=== PATIENT | female | born 1955 | race Caucasian/White ===

== ENCOUNTER 2020-02-11 10:35 | Outpatient (CLI) | payer OTHER, SELFPAY ==
--- NOTE | ~2020-02-11 | MM_ITS ---
EXAMINATION: MM screening minh BI w madan HISTORY: Screening TECHNIQUE: Craniocaudal and mediolateral oblique 3-D tomosynthesis images were obtained and synthetic 2-D images were generated. CAD analysis was submitted and interpreted. COMPARISON: Comparison to multiple prior studies sequentially, with oldest reviewed study dated 08/20. BREAST PARENCHYMAL COMPOSITION: The breasts are heterogeneously dense, which may obscure small masses . FINDINGS: There is no evidence of suspicious mass, calcification, or architectural distortion to sugg est malignancy in either breast. There has been no suspicious interval change. IMPRESSION: 1. No mammographic evidence of malignancy. 2. Recommend routine screening mammography in one year. BI-RADS Category 1: Negative Reviewed, dictated and finalized at location A.
--- NOTE | ~2020-02-11 | DEXA_ITS ---
Bone Density Report Name: Aracelis Gao Age: 64 Sex: Female Ethnicity: White Date of : 1955 Indication: osteopenia; monitoring treatment; height loss; prior fracture; postmenopausal Referring Provider: Jorge Xie Study: Bone densitometry was performed. Exam Date: February 11, 2020 Accession number: [id number] Bone Density: Region BMD T-score Z-score Classification AP Spine (L1, L2) 0.942 -0.3 1.2 Normal Femoral Neck (Left) 0.626 -2.0 -0.6 Osteopenia Total Hip (Left) 0.854 -0.7 0.4 Normal Total Hip Bilateral Avg 0.796 -1.2 -0.1 Osteopenia Femoral Neck (Right) 0.591 -2.3 -0.9 Osteopenia Total Hip (Right) 0.737 -1.7 -0.6 Osteopenia World Health Organization criteria for BMD impression classify patients as: Normal (T-score at or above -1.0), Osteopenia (T-score between -1.0 and -2.5), or Osteoporosis (T-score at or below -2.5). 10-year Fracture Risk: FRAX not reported because: Treated for osteoporosis Previous Exams: Region Exam Age BMD T-score BMD Change BMD Change Date g/cm2 vs Baseline vs Previous AP Spine(L1, L2) 02/11/2020 64 0.942 -0.3 -0.098(-9.4%)# 0.002(0.2%) 01/11/2018 62 0.941 -0.3 -0.100(-9.6%)# 0.040(4.5%)# 11/11/2015 60 0.900 -0.7 -0.140(-13.4%) -0.166(-15.6%) 08/03/2010 55 1.067 0.8 0.026(2.5%)* 0.026(2.5%)* 03/28/2007 52 1.040 0.6 Total Hip(Left) 02/11/2020 64 0.854 -0.7 -0.020(-2.2%)# -0.019(-2.2%) 01/11/2018 62 0.873 -0.6 -0.001(-0.1%)# 0.030(3.6%)# 11/11/2015 60 0.843 -0.8 -0.031(-3.5%)# 0.019(2.3%)# 08/03/2010 55 0.824 -1.0 -0.050(-5.7%)* -0.050(-5.7%)* 03/28/2007 52 0.874 -0.6 Total Hip(Right) 02/11/2020 64 0.737 -1.7 -0.055(-6.9%)# -0.061(-7.6%)* 01/11/2018 62 0.798 -1.2 0.006(0.8%)# 0.044(5.8%)# 11/11/2015 60 0.754 -1.5 -0.038(-4.8%)# -0.007(-0.9%)# 08/03/2010 55 0.761 -1.5 -0.031(-3.9%)* -0.031(-3.9%)* 03/28/2007 52 0.791 -1.2 *Denotes significance at 95% confidence level, LSC for AP Spine = 0.022 g/cm2, LSC for Total Hip = 0.027 g/cm2 Clinical Information Provided by Patient: Has had a low trauma fracture Is being treated for osteoporosis Has used the following medications: Fosamax (i.e. alendronate), Calcium Patient maximum height was 64.5 Menopause Age: 50 Drinks caffeinated beverages Onset of menses at age 14 Number of children 3 Impression: The patient has low bone mass, based on the Right Fe
== END 2020-02-11 10:36 | disposition home or self-care (01) ==
PROVIDERS: PCP Family Medicine; Visit Provider Physician Assistant
DX: Z12.31 Encounter for screening mammogram for malignant neoplasm of breast (principal); M85.80 Other specified disorders of bone density and structure, unspecified site; M81.0 Age-related osteoporosis without current pathological fracture; Z78.0 Asymptomatic menopausal state
CPT/HCPCS: 77063; 77067; 77080

== ENCOUNTER 2020-05-07 11:48 | Outpatient (CLI) | payer OTHER, SELFPAY ==
--- NOTE | 2020-05-07 12:56 | ECG_ITS ---
Measurements Intervals [place] Rate: 68 P: 79 DC: 151 QRS: 33 QRSD: 89 T: 50 QT: 395 QTc: 423 Interpretive Statements SINUS RHYTHM INCOMPLETE RIGHT BUNDLE BRANCH BLOCK DELAYED PRECORDIAL R/S TRANSITION BASELINE ARTIFACT- I, III, AVL, AVF BORDERLINE ECG Electronically Signed On 05-07-2020 13:28:09 DESIGN ENGINEER by Caio Nieves D.O.
[2020-05-07 13:22] LABS: Basophils Percent Auto 0.5 % (0.2-1.2); Eosinophils Absolute Auto 0.1 K/mm3 (0-0.3); Hematocrit 40.5 % (37.0-47.0); Hemoglobin 13.3 g/dL (12.0-15.0); Immature Granulocyte Absolute 0.02 K/mm3 (0.00-0.031); Immature Granulocyte Percent A 0.3 % (0-0.5); Lymphocytes Percent Auto 32.1 % (18.3-44.2); Mean Corpuscular HGB Conc 32.8 g/dl (32-36); Mean Corpuscular Hemoglobin 29.2 pg (26-34); Mean Corpuscular Volume 88.8 fl (80-100); Mean Platelet Volume 10.2 fl (7.4-10.4); Monocytes Absolute Auto 0.4 K/mm3 (0.1-0.6); Monocytes Percent Auto 7.3 % (2.6-8.5); Neutrophils Absolute Auto 3.4 K/mm3 (1.3-6.7); Neutrophils Percent Auto 57.8 % (45.5-73.1); Platelet Count Result 200 k/mm3 (150-375); Red Blood Count 4.56 M/mm3 (4.2-5.4); Red Cell Distribution Width 13.5 % (11.5-14.5); White Blood Count 5.9 K/mm3 (4.5-10.0)
[2020-05-07 13:31] LABS: Alanine Aminotransferase 19 U/L (4-35); Albumin Level 3.9 g/dL (3.5-5.1); Alkaline Phosphatase 64 U/L (38-126); Anion Gap 3 mmol/L (8-16); Aspartate Amino Transferase 16 U/L (14-36); Bilirubin,Total 0.4 mg/dL (0.2-1.3); Blood Urea Nitrogen 14 mg/dL (7-17); Calcium 8.8 mg/dL (8.4-10.2); Carbon Dioxide 36 mmol/L (22-30); Chloride 101 mmol/L (98-107); Estimated Glomerular Filt Rate > 60; Glucose 103 mg/dL (65-105); Potassium 3.6 mmol/L (3.4-5.0); Sodium 140 mmol/L (137-145)
[2020-05-07 13:33] LABS: INR 0.9; Prothrombin Time 13.1 Seconds (11.1-14.7)
== END 2020-05-07 11:49 | disposition home or self-care (01) ==
PROVIDERS: PCP Family Medicine; Visit Provider Urology
DX: N81.4 Uterovaginal prolapse, unspecified (principal); Z01.818 Encounter for other preprocedural examination; I45.10 Unspecified right bundle-branch block
CPT/HCPCS: 36415; 80053; 85025; 85610; 85730; 86850; 86900; 86901; 87086; 93005

== ENCOUNTER 2020-05-14 00:21 | Outpatient (CLI) | payer OTHER, SELFPAY ==
[2020-05-14 18:46] LABS: SARS-CoV-2 RNA PCR Negative
== END 2020-05-14 00:22 | disposition home or self-care (01) ==
LOC: ANHCOVIDDT 00:22
PROVIDERS: PCP Family Medicine; Visit Provider Urology
DX: Z01.812 Encounter for preprocedural laboratory examination (principal); Z20.822 Contact with and (suspected) exposure to COVID-19
CPT/HCPCS: C9803; U0003; U0005

== ENCOUNTER 2020-05-17 02:20 | Day surgery (SDC) | payer OTHER, SELFPAY ==
[2020-05-07 12:16] VITALS: BP 138/69; PULSE 67; RESP 16; TEMP 37.2; O2SAT 97; BMI 28.1
--- NOTE | 2020-05-15 08:36 | PM.IMHP ---
H&P: HPI History of Present Illness Date/Time: 05/15/20 08:36 Chief Complaint: POP Narrative: Aracelis Gao is a 65 year old female with POP without CHERYL Review of Systems Review of Systems: All systems reviewed & are unremarkable except as noted in HPI and below PMFSH Family History Family History Father Diabetes mellitus Family history of cardiovascular disease Acute myocardial infarction Mother Diabetes mellitus Grandparent Family history of cardiovascular disease Family history of congestive heart failure Sibling Family history of malignant neoplasm of breast, Onset Age: 48 Social History Social History Smoking packs per day: 1 Smoking cigarettes per day: 20.0 Years smoked: 6 Smoking pack-years: 6.00 Smoking status: Former smoker Smoking end date: 10/28/78 Alcohol intake: current Drinks per week: 7 Substance use: never Spiritual care concerns: No Meds Home Medications and Allergies Home Medications Medication Instructions Recorded Confirmed Type alendronate 70 mg tablet 70 mg PO WEEKLY #13 tablet 12/19/19 05/07/20 Rx calcium carbonate [Caltrate 600] 600 mg PO DAILY 05/07/20 05/07/20 History cholecalciferol (vitamin D3) 50 mcg PO DAILY 05/07/20 05/07/20 History [Vitamin D3] Allergies Allergy/AdvReac Type Severity Reaction Status Date / Time Penicillins Allergy Unknown Unknown Verified 05/07/20 12:11 codeine AdvReac Unknown Dizziness Verified 05/07/20 12:11 Exam Const: General: cooperative and healthy appearing HENMT: Head: normal to inspection Resp: Effort & Inspection: normal respiratory effort and able to speak in complete sentences GI: Inspection: normal to inspection : Bimanual exam- vagina & uterus: Uterus displaced (+3) Bimanual Exam- Adnexa, other: vaginal apex descent Skin: General skin exam: normal color Neuro: General: patient oriented x3 Assessment and Plan Assessment and plan (1) Pelvic prolapse: Qualifiers: Prolapse type: unspecified female genital prolapse Qualified Code(s): N81.9 - Female genital prolapse, unspecified Code(s): N81.9 - Female genital prolapse, unspecified Status: Acute Assessment and Plan: Robotic Sacral Colpopexy
[2020-05-17] VITALS (15 sets, daily range): BP systolic 108–132; BP diastolic 49–88; PULSE 54–103; RESP 14–60; TEMP 36.1–37.7; O2SAT 95–100
--- NOTE | 2020-05-17 06:38 | WPDANESEPPF ---
Anes - Initial Pre Proc Eval Procedure: Operation Date: 05/17/20 07:30 Proposed Procedures p Robotic Sacrocolpopexy with Urethral Sling - Robert Medeiros MD s Robotic Assisted Laparoscopic Supracervical Hysterectomy, With Bilateral Salpingo-Oophorectomy - Sami Galan MD Date/Time: 05/17/20 06:38 Surgeon: Robert Medeiros MD Pre Op Diagnosis: uterine prolapse, cystocele Patient Data Age: 65 Gender: F Height: 1.61 m Weight: 73.2 kg Last Vital Signs Temp 37.2 C 05/07/20 12:16 Pulse 67 05/07/20 12:16 Resp 16 05/07/20 12:16 BP 138/69 05/07/20 12:16 Pulse Ox 97 05/07/20 12:16 Allergies Allergy/AdvReac Type Severity Reaction Status Date / Time codeine AdvReac Unknown Dizziness Verified 05/17/20 06:12 Penicillins AdvReac Unknown UNKNOWN Verified 05/17/20 06:12 FROM CHILDHOOD Home Medications Medication Instructions Recorded Confirmed Type alendronate 70 mg tablet 70 mg PO WEEKLY #13 tablet 12/19/19 05/17/20 Rx calcium carbonate [Caltrate 600] 600 mg PO DAILY 05/07/20 05/17/20 History cholecalciferol (vitamin D3) 50 mcg PO DAILY 05/07/20 05/17/20 History [Vitamin D3] ECG: Date of Service: 05/07/20 Procedure(s): CA 12 lead EKG Accession Number(s): [id number] cc: ~ Measurements Intervals [place] Rate: 68 P: 79 NE: 151 QRS: 33 QRSD: 89 T: 50 QT: 395 QTc: 423 Interpretive Statements SINUS RHYTHM INCOMPLETE RIGHT BUNDLE BRANCH BLOCK DELAYED PRECORDIAL R/S TRANSITION BASELINE ARTIFACT- I, III, AVL, AVF BORDERLINE ECG Electronically Signed On 05-07-2020 13:28:09 [employer] SUPERINTENDENT by Caio Nieves D.O. Dictated By: Caio Nieves DO 05/07/20 1331 Patient hx anesthesia problems: none Family hx anesthesia problems: none PMFSH Past Medical History Medical History (Updated 05/17/20 @ 06:40 by Arthur Mcgee MD) Cystocele Osteopenia Uterine prolapse Family History Family History Father Diabetes mellitus Family history of cardiovascular disease Acute myocardial infarction Mother Diabetes mellitus Grandparent Family history of cardiovascular disease Family history of congestive heart failure Sibling Family history of malignant neoplasm of breast, Onset Age: 48 Social History Social History Smoking packs per day: 1 Smoking cigarettes per day: 20.0 Years smoked: 6 Smoking pack-years: 6.00 Smoking status: Former smoker Smoking end date: 04/30/94 Alcohol intake: current Drinks per week: 7 Alcohol use details: 1 GLASS/DAY Substance use: never Living arrangements: alone Spiritual care concerns: No Anes - Eval Final PreProcedure Day of Procedure 05/17/20 06:38 Patient weight: overweight Heart: regular rate and rhythm Lungs: clear to auscultation and normal air movement Airway: Mallampati scale class II Neurological: alert and oriented Last oral intake: >/= 8 hours ASA classification: II Emergent: no Anesthetic plan: proceed Anesthesia type and monitoring: general ETT Informed Consent: The patient's anesthetic plan and its attendant risks and benefits were discussed with the patient/family/POA. Questions were solicited and answers provided to the satisfaction of the patient/family/POA.
[2020-05-17] MEDS: ACETAMINOPHEN 500 MG TABLET 1000 MG PO (07:01)
[2020-05-17] MEDS: LACTATED RINGERS 1,000 ML 30 ML IV CONT ×2 (07:05→10:14)
[2020-05-17] MEDS: KETOROLAC 15 MG/ML VIAL (*BKC) IV PUSH (07:11)
--- NOTE | 2020-05-17 07:20 | WPDHPUPDATE1 ---
History and Physical Update Update Date/Time: 05/17/20 07:20 History and Physical has been reviewed, including an updated exam of the patient. There are NO changes in the patient's condition. Risks, benefits, and alternatives have been discussed and questions answered. Patient agrees to proceed with procedure.
--- NOTE | 2020-05-17 07:25 | WPDHPUPDATE1 ---
History and Physical Update Update Date/Time: 05/17/20 07:25 History and Physical has been reviewed, including an updated exam of the patient. There are NO changes in the patient's condition. Risks, benefits, and alternatives have been discussed and questions answered. Patient agrees to proceed with procedure.
--- NOTE | 2020-05-17 07:25 | PM.IMHP ---
H&P: HPI History of Present Illness Date/Time: 05/17/20 07:25 Chief Complaint: Vaginal pressure and fullness. Narrative: Aracelis Gao is a 65 year old female presents with a longstanding history of of vaginal pressure fullness. This has been worsening over the last 4-6 months to the point where she has decided to proceed with treatment. She also seen Dr. Medeiros. He will be proceeding with her cystocele. Review of Systems Review of Systems: All systems reviewed & are unremarkable except as noted in HPI and below PMFSH Past Medical History Medical History Cystocele Osteopenia Uterine prolapse Family History Family History Father Diabetes mellitus Family history of cardiovascular disease Acute myocardial infarction Mother Diabetes mellitus Grandparent Family history of cardiovascular disease Family history of congestive heart failure Sibling Family history of malignant neoplasm of breast, Onset Age: 48 Social History Social History Smoking packs per day: 1 Smoking cigarettes per day: 20.0 Years smoked: 6 Smoking pack-years: 6.00 Smoking status: Former smoker Smoking end date: 04/30/94 Alcohol intake: current Drinks per week: 7 Alcohol use details: 1 GLASS/DAY Substance use: never Living arrangements: alone Spiritual care concerns: No Meds Home Medications and Allergies Home Medications Medication Instructions Recorded Confirmed Type alendronate 70 mg tablet 70 mg PO WEEKLY #13 tablet 12/19/19 05/17/20 Rx calcium carbonate [Caltrate 600] 600 mg PO DAILY 05/07/20 05/17/20 History cholecalciferol (vitamin D3) 50 mcg PO DAILY 05/07/20 05/17/20 History [Vitamin D3] Allergies Allergy/AdvReac Type Severity Reaction Status Date / Time codeine AdvReac Unknown Dizziness Verified 05/17/20 06:12 Penicillins AdvReac Unknown UNKNOWN Verified 05/17/20 06:12 FROM CHILDHOOD Exam Const: General: cooperative Resp: Effort & Inspection: normal respiratory effort Cardio: Rate: regular rate Rhythm: regular rhythm GI: Inspection: normal to inspection : External Female Exam: normal external appearance Speculum Exam - Vagina: normal appearance of the vagina Speculum Exam - Cervix: normal appearance of the cervix Bimanual exam- vagina & uterus: Uterus displaced (Prolapse noted as well as cystocele) Bimanual Exam- Adnexa, other: normal adnexae Assessment and Plan Assessment and plan (1) Uterine prolapse: Code(s): N81.4 - Uterovaginal prolapse, unspecified Status: Acute (2) Cystocele: Status: Acute Additional Plan Robotic assisted supracervical hysterectomy with bilateral salpingo oophorectomy.
[2020-05-17] MEDS: ceFAZolin 2 GM/D5W 50 ML 2 GM/50 ML BAG IVPB (07:38)
[2020-05-17] MEDS: metroNIDAZOLE 500 MG/ISO 100ML 500 MG/100 ML BAG 100 MG IVPB ×2 (08:00→16:10)
--- NOTE | 2020-05-17 08:36 | PM.OP ---
Procedure Note - Brief Procedure Note - Brief Date of procedure: 05/17/20 Pre-op diagnosis: uterine prolapse, cystocele Post-op diagnosis: same Procedure performed: Robotic assisted supracervical hysterectomy with bilateral salpingo oophorectomy Description of procedure: Patient was prepped and draped in usual manner for this procedure. Dr. Medeiros placed all the trocars and instruments in the patient's abdomen. At this point surgeon moved to the console and the pelvis was inspected without abnormality. Bilaterally the infundibulopelvic ligaments were cauterized and cut to free up the tubes and ovaries round ligaments were then cauterized and cut. Bladder flap and posterior leaf of the broad ligament were incised. Uterine vessels were skeletonized cauterized and cut. The uterus tubes and ovaries were then from the cervix without difficulty. At this time there were placed in Endo-Catch bag for removal later in the case. There was no bleeding no other concerns and at this point entered the room to proceed with his portion of the procedure. Anesthesia: GETA Surgeon: Sami Galan MD Estimated blood loss (mL): 10 Drains: No Packing: No Pathology: yes Complications: No immediate complications Condition: stable Disposition: PACU Findings: Uterine prolapse was noted. Uterus tubes and ovaries without visible abnormality on laparoscopic inspection.
[2020-05-17] MEDS: LIDO 1%/EPINEPHRINE 1:100,000 50 ML VIAL INFILTRATE (08:41)
--- NOTE | 2020-05-17 09:58 | SUR.OPER ---
Ebl=10ml
--- NOTE | 2020-05-17 10:02 | PM.PROC ---
Procedure Note - Detailed Date of procedure: 05/17/20 Pre-op diagnosis: uterine prolapse, cystocele Post-op diagnosis: same Procedure performed: Robotic assisted laparoscopic sacral colpopexy Cystoscopy Description of procedure: Anesthesia: General She understood the risks of bleeding, infection, damage to surrounding organs, bowel injury, bowel obstruction, recurrence of prolapse, persistent or recurrent stress incontinence, mesh related complications including exposure and extrusion, diskitis, postoperative voiding dysfunction including incontinence and retention, hip and leg pain, dyspareunia, and she agrees to proceed. She was correctly identified and informed consent was obtained. She was brought to the operating room. She was given general anesthesia. She was placed in the dorsal lithotomy position. All pressure points were padded. She was given appropriate perioperative antibiotics. Time-out performed. I anesthetized the skin 3 fingerbreadths cephalad to the umbilicus. I incised the skin. I dissected down to locate the fascia. I grasped the fascia with Claudia clamps. I entered the fascia sharply. I placed Vicryl sutures for later fascial closure. I placed a midline trocar. Under direct vision 2 additional trocars were placed on the right and left upper quadrant. She was placed in steep Trendelenburg and the robot was docked. Her college or university business manager performed the portion of the procedure and left the specimen and a sac which was extracted. I then sat at the console. With the Sizer in the vagina I created a plane on the anterior and posterior vaginal wall. This was done for several cm taking great care not to injure the vagina, bladder, or rectum. I introduced the mesh into the abdomen. I sewed the anterior leaflet of mesh on the anterior vaginal wall and posterior leaf of the mesh on the posterior vaginal wall with several [place] sutures taking great care not to go through and through. I then reflected the colon laterally. I opened up the posterior peritoneum over the sacral promontory. I carried this into the cul-de-sac. I kept the ureters lateral. I freed up the edges. I located the anterior longitudinal ligament of the sacrum. I tensioned the mesh appropriately. I did a vaginal exam to ensure prolapse reduction without undue tension. I then sewed the proximal leaflet of mesh onto the ligament with 3 sutures of 2 0 [place]. Next the mass was meticulously retroperitonealized with a running 2 0 Monocryl suture. I allowed the colon to go back into its normal anatomic location. There is no signs of any impingement or stricturing. The abdomen was exited. Fascia was closed. Skin was closed with Monocryl and glue. She was repositioned. I then performed cystoscopy. The bladder is examined. There was no tumors, stones, foreign bodies, surgical artifact. Both ureters were seen to excrete clear yellow urine. There is no surgical artifact in the urethra. Catheter was then replaced. She was awakened and transferred to the PACU in stable condition. Anesthesia: GLMA Surgeon: Robert Medeiros MD Drains: Yes (Recinos catheter) Packing: Yes Complications: No immediate complications Condition: stable Disposition: PACU
[2020-05-17] MEDS: fentaNYL CITRATE INJ (*CRX) 100 MCG/2 ML VIAL 25 MCG IV PUSH ×4 (10:28→10:58)
--- NOTE | 2020-05-17 10:29 | SUR.PHASEI ---
PT MOANING AND GRIMACING, C/O PAIN. FENTANYL GIVEN PRN
[2020-05-17] MEDS: ONDANSETRON INJ 4 MG/2 ML VIAL IV PUSH ×2 (11:12→16:33)
--- NOTE | 2020-05-17 11:16 | SUR.PHASEI ---
PT C/O NAUSEA. ZOFRAN GIVEN IV. SAO2 DROPPED TO 88%. O2 2L NC APPLIED
--- NOTE | 2020-05-17 11:21 | SUR.PHASEI ---
PT SLEEPING. RESP EVEN UNLABORED.
--- NOTE | 2020-05-17 11:30 | SUR.PHASEI ---
1120; PT STATES NAUSEA BETTER.
--- NOTE | 2020-05-17 11:31 | PC.NURSE ---
This patient, Aracelis Gao, was received from PACU on 05/17/20 at 1131. Patient oriented to unit policies and routines
[2020-05-17] MEDS: KCL 20 MEQ/D5/0.45% SOD CHL 1,000 ML 100 ML IV CONT ×2 (11:50→20:31)
[2020-05-17] MEDS: KETOROLAC 30 MG/ML VIAL (*BKC) 15 MG IV PUSH ×2 (12:47→23:49)
[2020-05-17] MEDS: MORPHINE SULFATE (*CRX) 2 MG/ML INJ IV PUSH (12:48)
[2020-05-17] MEDS: diphenhydrAMINE HCl INJ 50 MG/ML VIAL 25 MG IV PUSH (13:07)
[2020-05-17] MEDS: ACETAMINOPHEN 325 MG TABLET 650 MG PO (17:43)
[2020-05-18] VITALS: BP 100/53; PULSE 75; RESP 16; TEMP 36.8; O2SAT 94
[2020-05-18] MEDS: metroNIDAZOLE 500 MG/ISO 100ML 500 MG/100 ML BAG 100 MG IVPB (00:09)
[2020-05-18 04:00] VITALS: BP 100/50; PULSE 83; RESP 16; TEMP 36.7; O2SAT 95
[2020-05-18] MEDS: HYDROcodone/acetaminophen (*CRX) 5-325 MG TABLET 1 TAB PO ×2 (05:18→11:26)
--- NOTE | 2020-05-18 07:25 | WPDANESPN ---
Anes - Prog Note Post-Op Date/Time: 05/18/20 07:25 Cardiovascular status: normal Respiratory status: normal Airway patency: baseline Mental status: baseline Post-Op hydration status: normal Vital Signs: Last Vital Signs Temp 36.7 C 05/18/20 04:00 Pulse 83 05/18/20 04:00 Resp 16 05/18/20 04:00 BP 100/50 L 05/18/20 04:00 Pulse Ox 95 05/18/20 04:00 Pain Score (VAS): 4 I/O: Intake & Output 05/17/20 05/17/20 05/18/20 15:59 23:59 07:59 Intake Total 450 1250 450 Output Total 45 300 1450 Balance 405 950 -1000 Post-procedural complaints: nausea Patient Feedback: Patient satisfied with anesthetic care.
[2020-05-18] MEDS: LACTATED RINGERS 1,000 ML 125 ML IV CONT (07:51)
[2020-05-18] MEDS: DOCUSATE SODIUM 100 MG CAPSULE PO (07:52)
[2020-05-18] MEDS: KETOROLAC 30 MG/ML VIAL (*BKC) 15 MG IV PUSH (07:52)
[2020-05-18] MEDS: ENOXAPARIN 30 MG/0.3 ML SYRINGE SUB-Q (07:53)
[2020-05-18] MEDS: ONDANSETRON INJ 4 MG/2 ML VIAL IV PUSH (08:24)
[2020-05-18 08:30] VITALS: BP 106/46; PULSE 60; RESP 18; TEMP 37.2; O2SAT 100
--- NOTE | 2020-05-18 09:03 | WPDUROPN2 ---
Progress Note: A&P Assessment and Plan (1) Pelvic prolapse: Qualifiers: Prolapse type: unspecified female genital prolapse Qualified Code(s): N81.9 - Female genital prolapse, unspecified Code(s): N81.9 - Female genital prolapse, unspecified Status: Acute Assessment and Plan: Push fluids, if able to urinate and hypotension improves, ok to discharge home later today. If unable to urinate, will need to replace the ramos and come in on for a catheter removal. (2) Uterine prolapse: Code(s): N81.4 - Uterovaginal prolapse, unspecified Status: Acute Subjective Subjective Date/Time Seen: 05/18/20 09:03 POD #1 Robotic Assisted Sacral Colpopexy and Robotic Assisted Hysterectomy with bilateral salpingo-oophorectomy. Patient doing well, she is slightly dizzy this morning but also hypotensive. She is nauseated and constipated, but tolerating diet well with Zofran. Ramos removed, no urination yet. Review of Systems Cardiovascular: Cardiovascular: Denies chest pain Respiratory: Respiratory: Reports no additional respiratory complaints Gastrointestinal: Gastrointestinal: Reports abdominal pain, Reports nausea and Denies vomiting Genitourinary: Genitourinary: Denies flank pain Exam Resp: Effort & Inspection: normal respiratory effort Cardio: Rate: regular rate GI: GI Palp: Yes Soft to palpation and No Tenderness to palpation present (GI) : General: Yes no CVA tenderness Extrem: General: no edema Objective Data Vital Signs Vital Signs: Vital Signs - 24 hr 05/17/20 10:14 05/17/20 10:30 05/17/20 10:45 Temperature 96.9 F L Pulse Rate 74 55 L 63 Respiratory Rate 14 14 14 Blood Pressure 110/63 114/68 114/59 L Pulse Oximetry 99 100 97 05/17/20 11:00 05/17/20 11:15 05/17/20 11:40 Temperature 98.7 F Pulse Rate 55 L 54 L 79 Respiratory Rate 16 14 16 Blood Pressure 128/66 111/54 L 117/60 Pulse Oximetry 99 99 100 05/17/20 11:45 05/17/20 12:00 05/17/20 12:15 Temperature Pulse Rate 79 64 60 Respiratory Rate 15 15 60 H Blood Pressure 108/70 118/49 L 117/54 L Pulse Oximetry 99 99 99 05/17/20 12:30 05/17/20 13:00 05/17/20 14:00 Temperature Pulse Rate 103 H 60 74 Respiratory Rate 22 H 16 16 Blood Pressure 118/88 114/49 L 132/54 L Pulse Oximetry 98 99 98 05/17/20 15:00 05/17/20 20:00 05/18/20 00:00 Temperature 98.1 F 97.6 F 98.2 F Pulse Rate 72 81 75 Respiratory Rate 18 16 16 Blood Pressure 121/55 L 108/62 100/53 L Pulse Oximetry 100 95 94 05/18/20 04:00 Temperature 98.1 F Pulse Rate 83 Respiratory Rate 16 Blood Pressure 100/50 L Pulse Oximetry 95 Intake/Output Intake/Output: Intake & Output 05/15/20 05/16/20 05/17/20 05/18/20 23:59 23:59 23:59 23:59 Intake Total 1700 450 Output Total 345 1450 Balance 1355 -1000 Meds/Results Medications: Active Medications Generic Name Dose Route Start Last Admin Trade Name Freq PRN Reason Stop Dose Admin Acetaminophen 650 mg 05/17/20 11:25 05/17/20 17:43 Acetaminophen 325 Mg Tablet PO 650 mg Q4H PRN Administration Mild Pain (1-3) or Fever Hydrocodone Bitart/Acetaminophen 1 tab 05/17/20 11:25 05/18/20 05:18 Hydrocodone/Acetaminophen (*Crx) 5-325 Mg Tablet PO 1 tab Q4H PRN Administration Pain Rated 4-5 Cephalexin HCl 500 mg 05/18/20 13:00 Cephalexin 500 Mg Capsule PO QID LONNIE Diphenhydramine HCl 25 mg 05/17/20 11:25 05/17/20 13:07 Diphenhydramine Hcl Inj 50 Mg/Ml Vial IV PUSH 25 mg Q6H PRN Administration Itching Docusate Sodium 100 mg 05/17/20 11:25 05/18/20 07:52 Docusate Sodium 100 Mg Capsule PO 100 mg DAILY [facility] Administration Enoxaparin Sodium 30 mg 05/18/20 09:00 05/18/20 07:53 Enoxaparin 30 Mg/0.3 Ml Syringe SUB-Q 30 mg DAILY LONNIE Administration Fentanyl Citrate 25 mcg 05/17/20 06:37 05/17/20 10:58 Fentanyl Citrate Inj (*Crx) 100 Mcg/2 Ml Vial IV PUSH 25 mcg Q2M PRN Admin
[2020-05-18 09:25] VITALS: BP 106/46; PULSE 60; RESP 18; TEMP 37.2
[2020-05-18] MEDS: CEPHALEXIN 500 MG CAPSULE PO (11:25)
[2020-05-18] MEDS: ACETAMINOPHEN 325 MG TABLET 650 MG PO (11:26)
[2020-05-18] MEDS: ONDANSETRON HCL ODT 4 MG TABLET PO (12:06)
--- NOTE | 2020-05-18 12:59 | PC.NURSE ---
1045- Pt. awake. States she hasn't slept at all . Informed pt. that she was asleep each time i looked in on her. Pt. seems to be very quiet but somewhat anxious regarding discharge. Instructed pt. that she would need to urinate and ambulate in hallway before discharge. Pt. verbalized understanding. Pt ate small amount of yogart along with cup of coffee. No emesis noted. Continues to complain of nausea. Explained that it could be due to anesthesia and pain medication she has received. Pt. pleasant and verbalized understanding. 1115- Pt. ambulated to bathroom with slow steady gait. Voided 400cc. of clear abdirahman urine. No spotting noted on peripad. Encouraged pt. to ambulate in room or hallway to help relieve gas. Instructed that gas is an issue with this type of surgery and the more she walks or stands will help move the air in intestinal tract. Pt. voiced understanding. 1145- Pt. ambulated hallway with slow steady gait. Steady or feet. Became nauseous and assisted to wheelchair. No emesis at this time. 1215- Discharge instructions given to pt. and [id number]. Instructed when she could have another [place] for pain. Informed pt. and family that time will help with nausea. Prescriptions were e-filed per Dr. Medeiros office. Pt. pleasant and cooperative. No questions or concerns voiced. States she will be happy to get home in own bed to sleep . Family will be available to stay with pt. and assist where needed.
== END 2020-05-18 12:25 | disposition home or self-care (01) ==
LOC: ANHSURGERY 07:39 → ANHOB2 10:57
PROVIDERS: Obstetrics & Gynecology; PCP Family Medicine; Visit Provider Urology
PROC: (CPT 57425; principal; 2020-05-17 07:30)
PROC: (CPT 58542; 2020-05-17 07:30)
DX: N81.4 Uterovaginal prolapse, unspecified (principal); Z87.891 Personal history of nicotine dependence
CPT/HCPCS: 57425; 58542; S2900; 36415; 80053; 85025; 85610; 85730; 86850; 86900; 86901; 87086; 88307; 93005; 99199; A9270; C1781; C9290; C9803; J0330; J0690; J1100; J1200; J1650; J1885; J2250; J2270; J2370; J2405; J2704; J2710; J3010; J3480; J7030; J7120; U0003; U0005

== ENCOUNTER 2021-03-11 10:29 | Outpatient (CLI) | payer OTHER, SELFPAY ==
--- NOTE | ~2021-03-11 | MM_ITS ---
EXAMINATION: MM screening minh BI w madan HISTORY: Screening mammogram TECHNIQUE: Craniocaudal and mediolateral oblique 3-D tomosynthesis images were obtained and synthetic 2-D images were generated. CAD analysis was submitted and interpreted. COMPARISON: 02/11/2020, 01/18/2019, 01/11/2018 bilateral screening mammogram examinations BREAST PARENCHYMAL COMPOSITION: The breasts are heterogeneously dense, which may obscure small masses . FINDINGS: There is no evidence of suspicious mass, calcification, or architectural distortion to sugg est malignancy in either breast. There has been no suspicious interval change. IMPRESSION: 1. No mammographic evidence of malignancy. 2. Recommend routine screening mammography in one year. BI-RADS Category 1: Negative Reviewed, dictated and finalized at location A. GRADER OPERATOR
== END 2021-03-11 10:30 | disposition home or self-care (01) ==
PROVIDERS: PCP Family Medicine; Visit Provider Family Medicine
DX: Z12.31 Encounter for screening mammogram for malignant neoplasm of breast (principal)
CPT/HCPCS: 77063; 77067

== ENCOUNTER 2022-02-24 01:04 | Day surgery (SDC) | payer OTHER, SELFPAY ==
[2022-02-15 14:09] VITALS: BMI 26.6
[2022-02-24 06:32] VITALS: BP 124/64; PULSE 74; RESP 18; TEMP 36.3; O2SAT 97; BMI 26.6
[2022-02-24] MEDS: LACTATED RINGERS 1,000 ML 150 ML IV CONT (06:40)
--- NOTE | 2022-02-24 07:19 | WPDANESEPPF ---
Anes - Initial Pre Proc Eval Procedure: Operation Date: 02/24/22 07:30 Proposed Procedures p Screening Colonoscopy - Chau Becerra MD Date/Time: 02/24/22 07:19 Surgeon: Chau Becerra MD Pre Op Diagnosis: neoplasm screening Patient Data Age: 66 Gender: F Height: 1.63 m Weight: 70.5 kg Last Vital Signs Temp 97.4 F L 02/24/22 06:32 Pulse 74 02/24/22 06:32 Resp 18 02/24/22 06:32 BP 124/64 02/24/22 06:32 Pulse Ox 97 02/24/22 06:32 O2 Del Method Room Air 02/24/22 06:32 Allergies Allergy/AdvReac Type Severity Reaction Status Date / Time codeine AdvReac Unknown Dizziness Verified 02/24/22 06:31 Penicillins AdvReac Unknown UNKNOWN Verified 02/24/22 06:31 FROM CHILDHOOD Home Medications Medication Instructions Recorded Confirmed Type calcium carbonate 600 mg calcium 600 mg PO DAILY 05/07/20 02/15/22 History (1,500 mg) tablet cholecalciferol (vitamin D3) 50 50 mcg PO DAILY 05/07/20 02/15/22 History mcg (2,000 unit) capsule (Vitamin D3) loratadine 10 mg tablet 10 mg PO DAILY 02/01/22 02/15/22 History multivitamin 1 tablet PO DAILY 02/01/22 02/15/22 History alendronate 70 mg tablet 70 mg PO WEEKLY 02/15/22 02/15/22 History sodium,potassium,mag sulfates 17.5 See Rx Instructions PO .COMPLEX 02/15/22 02/24/22 Rx gram-3.13 gram-1.6 gram oral soln #354 mL (Suprep Bowel Prep Kit) Patient hx anesthesia problems: none Family hx anesthesia problems: none Results Review: All pre-operative results and documents have been reviewed as part of the pre-operative evaluation. COUNT INCLUDES THE [facility] Past Medical History Medical History Actinic keratoses Acute seasonal allergic rhinitis Cystocele Overactive bladder Pelvic prolapse March Surgery Dr Galan and Waldemar Seborrheic keratoses, inflamed Uterine prolapse Surgical History Surgical History History of discectomy History of hysterectomy 05/17/20 RA supracx hyst w/ BSO--uterine prolapse w/bladder suspension Family History Family History Father Diabetes mellitus Family history of cardiovascular disease Acute myocardial infarction Mother Diabetes mellitus Hypertension Grandparent Family history of cardiovascular disease Family history of congestive heart failure Diabetes mellitus paternal grandmother paternal grandfather Hypertension paternal grandfather Sibling Family history of malignant neoplasm of breast, Onset Age: 48 Social History Social History (Updated 02/01/22 @ 13:04 by Ankit Smith MA) Smoking packs per day: 1 Smoking cigarettes per day: 20.0 Years smoked: 6 Smoking pack-years: 6.00 Smoking status: Never smoker Smoking end date: 04/30/94 Alcohol intake: current Drinks per week: 2 Alcohol use details: 1 GLASS/DAY Substance use: never Substance use type: does not use Living arrangements: alone Additional living arrangements comments: 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 Gender identity (if verbalized by the patient): Female Sexual Orientation (if Verbalized by the Patient): Straight or Heterosexual Spiritual care concerns: No Anes - Eval Final PreProcedure Day of Procedure 02/24/22 07:19 Patient weight: overweight Heart: regular rate and rhythm Lungs: clear to auscultation Airway: Mallampati scale class II Neurological: alert and oriented Last oral intake: >/= 8 hours ASA classification: II Emergent: no Anesthetic plan: proceed Anesthesia type and monitoring: general GIVS and standard monitoring Results Review: All pre-operative results and documents have been reviewed as part of the pre-operative evaluation. Informed Consent: The patient's anesthetic plan and its attendant risks and benefits were di
--- NOTE | 2022-02-24 07:19 | PM.HPGS ---
History of Present Illness History of Present Illness Consent: Risks, benefits, and alternatives have been discussed and questions answered. Patient agrees to proceed with procedure. Chief complaint: neoplasm screening Narrative: Aracelis Gao is a 66 year old female Presents for screening colonoscopy. Patient's current weight appetite and bowel movements are normal. Patient denies abdominal pain. She has had no bleeding. Family history is noncontributory. Patient's last colonoscopy 10 years ago was unremarkable. Review of Systems Review of Systems: Review of systems noncontributory. [facility] Past Medical History Medical History Actinic keratoses Acute seasonal allergic rhinitis Cystocele Overactive bladder Pelvic prolapse March Surgery Dr Galan and Waldemar Seborrheic keratoses, inflamed Uterine prolapse Surgical History Surgical History History of discectomy History of hysterectomy 05/17/20 RA supracx hyst w/ BSO--uterine prolapse w/bladder suspension Family History Family History Father Diabetes mellitus Family history of cardiovascular disease Acute myocardial infarction Mother Diabetes mellitus Hypertension Grandparent Family history of cardiovascular disease Family history of congestive heart failure Diabetes mellitus paternal grandmother paternal grandfather Hypertension paternal grandfather Sibling Family history of malignant neoplasm of breast, Onset Age: 48 Social History Social History (Updated 02/01/22 @ 13:04 by Ankit Smith MA) Smoking packs per day: 1 Smoking cigarettes per day: 20.0 Years smoked: 6 Smoking pack-years: 6.00 Smoking status: Never smoker Smoking end date: 04/30/94 Alcohol intake: current Drinks per week: 2 Alcohol use details: 1 GLASS/DAY Substance use: never Substance use type: does not use Living arrangements: alone Additional living arrangements comments: 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 Gender identity (if verbalized by the patient): Female Sexual Orientation (if Verbalized by the Patient): Straight or Heterosexual Spiritual care concerns: No Meds Home Medications and Allergies Home Medications Medication Instructions Recorded Confirmed Type calcium carbonate 600 mg calcium 600 mg PO DAILY 05/07/20 02/15/22 History (1,500 mg) tablet cholecalciferol (vitamin D3) 50 50 mcg PO DAILY 05/07/20 02/15/22 History mcg (2,000 unit) capsule (Vitamin D3) loratadine 10 mg tablet 10 mg PO DAILY 02/01/22 02/15/22 History multivitamin 1 tablet PO DAILY 02/01/22 02/15/22 History alendronate 70 mg tablet 70 mg PO WEEKLY 02/15/22 02/15/22 History sodium,potassium,mag sulfates 17.5 See Rx Instructions PO .COMPLEX 02/15/22 02/24/22 Rx gram-3.13 gram-1.6 gram oral soln #354 mL (Suprep Bowel Prep Kit) Allergies Allergy/AdvReac Type Severity Reaction Status Date / Time codeine AdvReac Unknown Dizziness Verified 02/24/22 06:31 Penicillins AdvReac Unknown UNKNOWN Verified 02/24/22 06:31 FROM CHILDHOOD Vital Signs Vital Signs - 24 hr 02/24/22 06:32 Temperature 97.4 F L Pulse Rate 74 Respiratory Rate 18 Blood Pressure 124/64 Pulse Oximetry 97 Oxygen Delivery Room Air Exam Narrative: Physical exam reveals patient to be alert. Vital signs stable. HEENT exam is unremarkable. Patient is anicteric. Lungs are clear to auscultation and percussion. Heart is without murmur or extra sounds. Abdomen bowel sounds are present soft nontender with no organomegaly. Digital external rectal exam is normal. Assessment and Plan Assessment and plan (1) Encounter for screening colonoscopy: Code(s): Z12.11 - Encounter for screening for malignan
[2022-02-24] MEDS: SIMETHICONE ORAL SUSPENSION 20 MG/0.3 ML 30 ML BOTTLE 0.6 ML IRRIGATION (07:39)
[2022-02-24 07:48] VITALS: BP 110/61; PULSE 75; RESP 19; O2SAT 97
[2022-02-24 07:58] VITALS: BP 129/75; PULSE 71; RESP 20; O2SAT 100
[2022-02-24 08:08] VITALS: BP 124/89; PULSE 68; RESP 19; O2SAT 100
== END 2022-02-24 08:23 | disposition home or self-care (01) ==
PROVIDERS: PCP Family Medicine; Visit Provider Internal Medicine Gastroenterology
PROC: 0DJD8ZZ Inspection of Lower Intestinal Tract, Via Natural or Artificial Opening Endoscopic (ICD-10-PCS; CPT 45378; principal; 2022-02-24 07:30)
DX: Z12.11 Encounter for screening for malignant neoplasm of colon (principal); K64.8 Other hemorrhoids; K57.30 Diverticulosis of large intestine without perforation or abscess without bleeding
CPT/HCPCS: 45378; J2704; J7120

== ENCOUNTER 2022-03-16 09:37 | Outpatient (CLI) | payer MEDICARE, SELFPAY ==
--- NOTE | ~2022-03-16 | DEXA_ITS ---
Bone Density Report Name: GUNNER CESAR Age: 67 Sex: Female Ethnicity: White Date of : 1955 Indication: osteopenia; monitoring treatment; height loss; prior fracture; hysterectomy; postmenopausal Referring Provider: JOAQUIN SPENCE Study: Bone densitometry was performed. Exam Date: March 16, 2022 Accession number: [id number] Bone Density: Region BMD T-score Z-score Classification AP Spine(L1, L2, L4) 1.036 0.0 1.8 Normal Femoral Neck (Left) 0.662 -1.7 -0.2 Osteopenia Total Hip (Left) 0.869 -0.6 0.6 Normal Femoral Neck (Right) 0.597 -2.3 -0.8 Osteopenia Total Hip (Right) 0.781 -1.3 -0.1 Osteopenia Total Hip Mean 0.825 -1.0 0.3 Normal World Health Organization criteria for BMD impression classify patients as: Normal (T-score at or above -1.0), Osteopenia (T-score between -1.0 and -2.5), or Osteoporosis (T-score at or below -2.5). 10-year Fracture Risk: FRAX not reported because: Treated for osteoporosis Previous Exams: Region Exam Age BMD T-score BMD Change BMD Change Date g/cm2 vs Baseline vs Previous Total Hip(Left) 03/16/2022 67 0.869 -0.6 0.026 (3.0%)# 0.014 (1.7%) 02/11/2020 64 0.854 -0.7 0.011 (1.3%)# -0.019 (-2.2%) 01/11/2018 62 0.873 -0.6 0.030 (3.6%)# 0.030 (3.6%)# 11/11/2015 60 0.843 -0.8 Total Hip(Right) 03/16/2022 67 0.781 -1.3 0.027 (3.5%)# 0.044 (5.9%)* 02/11/2020 64 0.737 -1.7 -0.017 (-2.3%) -0.061 (-7.6%) 01/11/2018 62 0.798 -1.2 0.044 (5.8%)# 0.044 (5.8%)# 11/11/2015 60 0.754 -1.5 *Denotes significance at 95% confidence level, LSC for Total Hip = 0.027 g/cm2 # Denotes dissimilar scan types or analysis methods Clinical Information Provided by Patient: Has had a low trauma fracture Is being treated for osteoporosis Has used the following medications: Fosamax (i.e. alendronate), Vitamin D, Calcium Has the following medical conditions: Hysterectomy Patient maximum height was 64.5 Menopause Age: 47 Drinks caffeinated beverages Onset of menses at age 15 Number of children 3 Impression: The patient has low bone mass, based on the Right Femoral Neck T-score. The patient has risk factors, including: previous fracture. No significant bone loss was observed. Discussion: PATIENT UNDER TREATMENT WITH NO SIGNIFICANT BMD LOSS SINCE LAST EXAM. In an untreated patient, BMD typically declines with age. A lack of decline or gain is usually a sign that treatment is efficacious and fracture risk is reduc
--- NOTE | ~2022-03-16 | MM_ITS ---
EXAMINATION: MM screening minh BI w madan HISTORY: Screening TECHNIQUE: Craniocaudal and mediolateral oblique 3-D tomosynthesis images were obtained and synthetic 2-D images were generated. CAD analysis was submitted and interpreted. COMPARISON: Comparison to multiple prior studies sequentially, with oldest reviewed study dated 11/10. BREAST PARENCHYMAL COMPOSITION: The breasts are heterogeneously dense, which may obscure small masses FINDINGS: There is no evidence of suspicious mass, calcification, or architectural distortion to sugg est malignancy in either breast. There has been no suspicious interval change. IMPRESSION: 1. No mammographic evidence of malignancy. 2. Recommend routine screening mammography in one year. BI-RADS Category 1: Negative Reviewed, dictated and finalized at location A. THETICS ASSISTANT
== END 2022-03-16 09:38 | disposition home or self-care (01) ==
LOC: ANHIMG 09:38
PROVIDERS: PCP Family Medicine; Visit Provider Family Medicine
DX: Z12.31 Encounter for screening mammogram for malignant neoplasm of breast (principal); M81.0 Age-related osteoporosis without current pathological fracture; Z78.0 Asymptomatic menopausal state; M85.852 Other specified disorders of bone density and structure, left thigh; M85.851 Other specified disorders of bone density and structure, right thigh
CPT/HCPCS: 77063; 77067; 77080

== ENCOUNTER 2022-05-03 11:20 | Outpatient (CLI) | payer MEDICARE, SELFPAY ==
[2022-05-03 14:13] LABS: Alanine Aminotransferase 23 U/L (6-35); Albumin Level 4.2 g/dL (3.5-5.1); Alkaline Phosphatase 68 U/L (38-126); Anion Gap 6 mmol/L (8-16); Aspartate Amino Transferase 19 U/L (14-36); Bilirubin,Total 0.8 mg/dL (0.2-1.3); Blood Urea Nitrogen 14 mg/dL (7-17); Calcium 8.7 mg/dL (8.4-10.2); Carbon Dioxide 31 mmol/L (22-30); Chloride 103 mmol/L (98-107); Cholesterol 231 mg/dL (0-200); Estimated Glomerular Filt Rate > 60; Glucose 89 mg/dL (65-110); HDL Direct 70 mg/dL; Sodium 140 mmol/L (137-145); Triglycerides 55 mg/dL (<150)
[2022-05-03 14:24] LABS: LDL Cholesterol Direct 111 mg/dL
== END 2022-05-03 11:21 | disposition home or self-care (01) ==
PROVIDERS: PCP Family Medicine; Visit Provider Family Medicine
DX: Z78.0 Asymptomatic menopausal state (principal); Z11.59 Encounter for screening for other viral diseases
CPT/HCPCS: 36415; 80053; 80061

== ENCOUNTER 2023-04-12 11:59 | Outpatient (CLI) | payer MEDICARE, SELFPAY ==
--- NOTE | ~2023-04-12 | MM_ITS ---
EXAMINATION: MM screening minh BI w madan HISTORY: Screening TECHNIQUE: Craniocaudal and mediolateral oblique 3-D tomosynthesis images were obtained and synthetic 2-D images were generated. CAD analysis was submitted and interpreted. COMPARISON: 12/16/2016 BREAST PARENCHYMAL COMPOSITION: The breasts are heterogeneously dense, which may obscure small masses FINDINGS: There is no evidence of suspicious mass, calcification, or architectural distortion to sugg est malignancy in either breast. There has been no suspicious interval change. IMPRESSION: 1. No mammographic evidence of malignancy. 2. Recommend routine screening mammography in one year. BI-RADS Category 1: Negative Reviewed, dictated and finalized at location A. TOGRAPHIC MACHINE OPERATOR
== END 2023-04-12 12:00 | disposition home or self-care (01) ==
PROVIDERS: PCP Family Medicine; Visit Provider Family Medicine
DX: Z12.31 Encounter for screening mammogram for malignant neoplasm of breast (principal)
CPT/HCPCS: 77063; 77067

== ENCOUNTER 2023-06-04 08:02 | Outpatient (CLI) | payer MEDICARE, SELFPAY ==
--- NOTE | ~2023-06-04 | NM_ITS ---
EXAMINATION: NM stress w perf spect multi DATE: 06/04/2023 10:11 INDICATION: Chest pain TECHNIQUE: Rest images were obtained following intravenous administration of 10.6 mCi Tc99m tetrofosm in (Nginxview). The patient performed an exercise activity. At peak exercise, 34.2 mCi Tc99m tetrofosmi n (Myoview) was administered intravenously, and stress images were obtained. Data was reconstructed i nto short axis and horizontal and vertical long axis SPECT images. Gated SPECT images were also obtai ildefonso. COMPARISON: None. FINDINGS: There is normal left ventricular perfusion without definite evidence of reversible or fixed perfusion abnormality to suggest ischemia or infarction. There is normal left ventricular chamber size, wall motion and ejection fraction. Left ventricular ejection fraction measures 69%. IMPRESSION: 1. Normal myocardial perfusion at rest and during stress. 2. Left ventricular ejection fraction measuring 69%. Reviewed, dictated and finalized at location A. ROENTEROLOGIST
--- NOTE | 2023-06-04 08:07 | EST_ITS ---
Patient Info Name: Aracelis Gao Age: 68 years : 1955 Gender: Female Ht: 63 in Wt: 155 lbs BSA: 1.79 m2 HR: 69 bpm BP: 138 / 71 mmHg Exam Date: 06/04/2023 9:00 AM Exam Location: [facility] Patient Status: Outpatient Admit Date: 06/04/2023 Staff Ordering Physician: Daniela Stevenson Attending Provider: Daniela Stevenson Exercise Technologist: Tita Motley RDCS Exercise Physician: Caio Nieves DO Exam Type: CA stress test treadmill w NM Study Info A nuclear stress test was performed. Summary 1. 1. Negative Bayron exercise stress test for ischemic ST changes by ECG criteria. 2. 2. Reduced functional capacity, achieving 4.7 METs of workload. 3. 3. Rapid HR response to exercise. 4. 4. Appropriate HR recovery at 1 minute post exercise. 5. 5. Nuclear scan to follow and will be reported separately. Please correlate with it. 6. 6. Patient informed of the above results. Protocol: Bayron Stress ECG Details Stage: REST Duration (min): 1 min : 57 sec Speed (mph): 0.0 Grade (%): 0 HR (bpm): 70 SBP (mmHg): 138 DBP (mmHg): 71 METS: --- Stage: REST Duration (min): 15 min : 57 sec Speed (mph): 0.0 Grade (%): 0 HR (bpm): 100 SBP (mmHg): 138 DBP (mmHg): 71 METS: --- Stage: STAGE 1 Duration (min): 1 min : 0 sec Speed (mph): 1.7 Grade (%): 10 HR (bpm): 118 SBP (mmHg): 138 DBP (mmHg): 71 METS: --- Stage: STAGE 1 Duration (min): 2 min : 0 sec Speed (mph): 1.7 Grade (%): 10 HR (bpm): 134 SBP (mmHg): 138 DBP (mmHg): 71 METS: --- Stage: STAGE 1 Duration (min): 3 min : 0 sec Speed (mph): 1.7 Grade (%): 10 HR (bpm): 135 SBP (mmHg): 174 DBP (mmHg): 66 METS: --- Stage: RECOVERY Duration (min): 0 min : 59 sec Speed (mph): 0.0 Grade (%): 0 HR (bpm): 98 SBP (mmHg): 174 DBP (mmHg): 66 METS: --- Stage: RECOVERY Duration (min): 1 min : 59 sec Speed (mph): 0.0 Grade (%): 0 HR (bpm): 68 SBP (mmHg): 174 DBP (mmHg): 66 METS: --- Stage: RECOVERY Duration (min): 2 min : 59 sec Speed (mph): 0.0 Grade (%): 0 HR (bpm): 76 SBP (mmHg): 173 DBP (mmHg): 69 METS: --- Stage: RECOVERY Duration (min): 3 min : 2 sec Speed (mph): 0.0 Grade (%): 0 HR (bpm): 76 SBP (mmHg): 173 DBP (mmHg): 69 METS: --- Rest HR: 100 bpm Peak HR: 136 bpm Rest Sys BP: 138 mmHg Peak Sys BP: 174 mmHg Max Pred HR: 154 bpm % Max Pred HR: 88 % Target HR: 131 bpm Max RPP: 23,664 bpm*mmHg Aviles Score: 1 Termination Reason: Reached target heart rate or workload Cardiac Symptoms: Shortness of breath Max ST Seg Deviation: 1 mm Total Time: 3 min : 0 sec Rest Hutson BP: 71 mmHg Peak Hutson BP: 66 mmHg Angina Score: None Total METS: 4.7 Resting ECG Sinus rhythm, IRBBB. Stress ECG No ST changes. Arrhythmias None. Report Signatures
== END 2023-06-04 08:03 | disposition home or self-care (01) ==
PROVIDERS: PCP Family Medicine; Visit Provider Nurse Practitioner Family
DX: R07.9 Chest pain, unspecified (principal)
CPT/HCPCS: 78452; 93017; A9502

== ENCOUNTER 2024-04-21 09:01 | Outpatient (CLI) | payer MEDICARE, SELFPAY ==
--- NOTE | ~2024-04-21 | MM_ITS ---
EXAMINATION: MM screening [facility] BI w madan HISTORY: Screening TECHNIQUE: Craniocaudal and mediolateral oblique 3-D tomosynthesis images were obtained and synthetic 2-D images were generated. CAD analysis was submitted and interpreted. COMPARISON: Examination was compared with multiple prior studies performed most recently on and dating back to 12/16/2016 BREAST PARENCHYMAL COMPOSITION: There are scattered areas of fibroglandular density. FINDINGS: Stable parenchymal pattern without suspicious microcalcifications, architectural distortion, discrete masses or significant asymmetry. Punctate calcifications detected bilaterally, vascular in origin and benign in appearance. IMPRESSION: 1. No mammographic evidence of malignancy. 2. Recommend routine screening mammography in one year. BI-RADS Category 2: Benign findings. Reviewed, dictated and finalized at location A. MACY SERVICE ASSOCIATE
--- OUTSIDE RECORDS SUMMARY | 2024-04-28 23:47 | XMS_ITS | Encounter Summary ---
Author Organization [facility] Address [address] [place] [address] Care Team Providers Care Certified Income Tax Preparer Name Role Phone Kristopher Brown MD Primary Care Provider [phone] Reason for Visit * Auth/Cert Specialty Diagnoses / Procedures Referred By Contac t Referred To Contact General Surgery Diagnoses LUMBAR HNP Procedures SPINAL MICRODISCECTOMY MINIMALLY INVASIVE [facility] Or [address] [place] [address] Referral ID Status Reason Start Date Expiration Date Visits Re quested Visits Authorized [id number] 1 1 Encounter Details Date Type Department Care Team (Late st Contact Info) Description 12/25/2013 7:27 AM CDT Anesthesia Event [facility] Operating Room [address] [place] [address] Luis Gifford MD [address] [place] [address] Anesthesia Record Procedure Summary Procedure Name Responsible Anesthesiologist Anesthesia Start Time Anesthesia Stop Time SPINAL MICRODISCECTOMY MINIMALLY INVASIVE, FAR LATERAL RT. L4-5 (Right: Spine Lumbar) Luis Gifford MD 12/25/13 0727 12/25/13 1017 Events Date Time Event Comment 12/25/2013 0642 0709 AN Equip Check Anesthesia eq uipment and materials checked in accordance with local policy. 0727 An Start 0727 Quick Note Vancomycin star kia at 0648 per preop RN 0730 An Start Data 0735 Pre-Induction Immediate pre- induction anesthetic assessment performed. Vital signs as noted on graphic. 0737 An Induction 0739 An Intubation 0742 Anesthesia Ready 0813 an iza now incision 0830 Quick Note Computer record not recording. Reset system 0837 Quick Note Computer up and running 1009 An Extubation Emergence unev entful Awake, spontaneous respirations. Adequate muscle strength demonstrated Adequate tidal volume. Orapharynx suctioned. Extubated with positive pressure ventilation. 1014 an stop data 1017 An Stop Meds Name Total midazolam (VERSED) 1??mg/mL injection 2 mg lidocaine (XYLOCAINE) 2% injection 80 mg propofol (DIPRIVAN) 10??mg/mL injection 200 mg fentaNYL (SUBLIMAZE) PF 50??mcg/mL injec tion 250 mcg rocuronium (ZEMURON) 10??mg/mL injection 50 mg glycopyrrolate (ROBINUL) 0.2 mg/mL injec tion 0.8 mg neostigmine (PROSTIGMINE) 1 mg/mL inject ion 4 mg dexamethasone (DECADRON) 4 mg/mL injecti on 10 mg ondansetron (ZOFRAN) 4??mg/2 mL injectio n 4 mg phenylephrine in NS (PF) 1??mg/10 mL syr shaan 700 mcg famotidine PF (PEPCID) 20mg/2 mL injecti on 20 mg diphenhydrAMINE (BENADRYL) 50 mg/mL inje ction 25 mg vancomycin (VANCOCIN) IVPB 1,000 mg 0 Gr am lactated ringers solution 1,400 mL * Agents Name Sevoflurane % Sevoflurane O2 Inspired O2 N2O Inspired N2O O2 * Blood No blood administrations on file. Lines, Drains, and Airways Type Details Placement Removal NG/OG Tube Present on Admission : No; Type: [place] sump, orogastric; Size: 18 Fr; Location: [facility], center 12/25/13 0801 by Peripheral IV Pre-Hospital Start: No; Orientation: Right; Location: Hand; Device: Angiocath; Gauge: 20 gauge; Insertion Attempts: 1; Patient Tolerance: tolerated well, appears comfortable; Removal Indication: no longer indicated; Removal Interventions: pressure dressing 12/25/13 0633 by Kristan Anderson RN 12/25/13 1830 by Monica Arroyo RN Endotracheal Airway Type: ETT, Oral (eas y mask ventilation); Cuff Pressure: minimal leak technique, minimal occluding volume, cuff inflated; Size: 7; Site: mouth; Attempts: 1; FOV: I; cm: 20; Device: Curved Blade; Blade: 3; Secured: secured with tape; Cricoid: Yes; Verification: Auscultated bilateral breath sounds, Equal chest movement, Continuous waveform capnography 12/25/13 0739 by Francie Reyes CRNA 12/25/13 1009 by Francie Reyes CRNA Adult Incision 12/25/13; 0959; surgical incision; inferior; back; 12/26/13; 0720 12/25/13 0959 by Salud Kyle RN 12/26/13 0720 by PROVIDER, DISCHARGE PATIENT documented in this encounter Social History Tobacco Use Types Packs/Day Years Used Date Smoking Tobacco: Never Alcohol Use Standard Drinks/Week Comments Yes 3.3 (1 standard drink = 0.6 oz p ure alcohol) Sex and Gender Information Value Date Recorded Sex Assigned at Not on file Gender Identity Not on file Sexual Orientation Not on file documented as of this encounter OR Notes * Anesthesia Postprocedure Evaluation - Luis Gifford MD - 12/25/2013 11:11 AM CDT Post Anesthesia Evaluation Vitals: BP 94/42 Pulse 70 Temp(Src) 36.9 ??C (Skin) Resp 22 Ht 5' 4 (1.626 m) Wt 150 lb (68.04 kg) BMI 25.73 kg/m2 SpO2 96% Pain Rating: Pain Rating: Rest: 10 (12/25/13 1042) Nausea/Vomiting: no nausea and no vomiting Post-Op hydration: well hydrated Respiratory function: no respiratory symptoms Airway patency: normal Cardiovascular function: Normal - Regular rate and rhythm Mental status, LOC: 0=alert; keenly responsive Patient participated in evaluation: yes Anesthetic complications: no Luis Gifford MD * Anesthesia Preprocedure Evaluation - Luis Gifford MD - 12/25/2013 6:37 AM CDT Anesthesia Evaluation Patient summary reviewed Airway Mallampati: II TM distance: >3 FB Neck ROM: full Dental Pulmonary - normal exam (-) pneumonia, COPD, asthma, shortness of breath, recent URI, sleep apnea, rhonchi, decreased breath sounds Cardiovascular - normal exam Exercise tolerance: good (Able to climb 2 flights of stairs) (-) pacemaker, hypertension, valvular problems/murmurs, past [place], CAD, CABG/stent, dysrhythmias, angina, CHF, orthopnea, PND, [place], murmur, friction rub Rhythm: regular Rate: normal Neuro/Psych (+) TIA, (-) seizures, neuromuscular disease, CVA, headaches, psychiatric history GI/Hepatic/Renal (-) hiatal hernia, GERD, PUD, hepatitis, liver disease, renal disease, bowel prep Endo/Other (-) diabetes mellitus, hypothyroidism, hyperthyroidism, blood dyscrasia, arthritis Abdominal Abdomen: soft. Anesthesia History No history of anesthetic complications, no history of difficult intubation, no history of malignanthyperthermia, no history of PONV and no pseudocholinesterase deficiency. Anesthesia Plan ASA 2 General Intravenous induction NPO status > 8 hours Anesthetic plan and risks discussed with Patient. Use of blood products: consented to blood products. Plan discussed with Anesthesiologist and Nurse Instructor Rob[employer]. Post-op Pain Control Plan to use IV or IM medication for post-op pain control. documented in this encounter Plan of Treatment Not on file documented as of this encounter Visit Diagnoses Not on filedocumented in this encounter Administered Medications Inactive Administered Medications - up to 3 most recent administrations Medication Order MAR Action Action Date Dose Rate Site dexamethasone (DECADRON) injection INTRA-PROCEDURE PRN, Starting on Sun12/25/13 at 0745, Until Freya 12/25/13 at 1018, Routine, Anesthesia Intra-op Given 12/25/2013 7:45 AM CDT 10 mg diphenhydrAMINE (BENADRYL) injection INTRA-PROCEDURE PRN, Starting on Sun12/25/13 at 0745, Until Freya 12/25/13 at 1018, Routine, Anesthesia Intra-op Given 12/25/2013 7:45 AM CDT 25 mg famotidine PF (PEPCID) 20 mg/2 mL injection INTRA-PROCEDURE PRN, Starting on Sun12/25/13 at 0745, Until Sun12/25/13 at 1018, Routine, Anesthesia Intra-op Given 12/25/2013 7:45 AM CDT 20 mg fentaNYL PF (SUBLIMAZE) 50 mcg/mL injection INTRA-PROCEDURE PRN, Starting on Freya 12/25/13 at 0737, Until Freya 12/25/13 at 1018, Routine, Anesthesia Intra-op Given 12/25/2013 9:58 AM CDT 50 mcg Given 12/25/2013 8:59 AM CDT 50 mcg Given 12/25/2013 8:11 AM CDT 50 mcg glycopyrrolate (ROBINUL) injection INTRA-PROCEDURE PRN, Starting on Freya 12/25/13 at 0948, Until Freya 12/25/13 at 1018, Routine, Anesthesia Intra-op Given 12/25/2013 9:48 AM CDT 0.8 mg lactated ringers solution IV, at 150 mL/hr, PRE-PROCEDURE CONTINUOUS, Starting on Freya 12/25/13 at 0615, Until Freya 12/25/13 at 1217, Routine, Pre-op New Bag 12/25/2013 8:40 AM CDT New Bag 12/25/2013 6:33 AM CDT 150 mL/hr lidocaine 2 % (XYLOCAINE) injection INTRA-PROCEDURE PRN, Starting on Freya 12/25/13 at 0737, Until Freya 12/25/13 at 1018, Other (See Comment), Routine, Anesthesia Intra-op Given 12/25/2013 7:39 AM CDT 60 mg Given 12/25/2013 7:37 AM CDT 20 mg midazolam (VERSED) injection INTRA-PROCEDURE PRN, Starting on Freya 12/25/13 at 0727, Until Freya 12/25/13 at 1018, Routine, Anesthesia Intra-op Given 12/25/2013 7:27 AM CDT 2 mg neostigmine (PROSTIGMINE) 1 mg/mL injection INTRA-PROCEDURE PRN, Starting on Freya 12/25/13 at 0948, Until Freya 12/25/13 at 1018, Routine, Anesthesia Intra-op Given 12/25/2013 9:48 AM CDT 4 mg ondansetron (ZOFRAN) 4 mg/2 mL injection INTRA-PROCEDURE PRN, Starting on Freya 12/25/13 at 0745, Until Freya 12/25/13 at 1018, Nausea/Emesis, Routine, Anesthesia Intra-op Given 12/25/2013 7:45 AM CDT 4 mg phenylephrine in NS 1 mg/10 mL (100 mcg/mL) injection INTRA-PROCEDURE PRN, Starting on Freya 12/25/13 at 0754, Until Freya 12/25/13 at 1018, Routine, Anesthesia Intra-op Given 12/25/2013 9:33 AM CDT 100 mcg Given 12/25/2013 9:11 AM CDT 100 mcg Given 12/25/2013 8:29 AM CDT 100 mcg propofol (DIPRIVAN) injection INTRA-PROCEDURE PRN, Starting on Freya 12/25/13 at 0737, Until Freya 12/25/13 at 1018, Anesthesia Intra-op Given 12/25/2013 7:37 AM CDT 200 mg rocuronium (ZEMURON) injection INTRA-PROCEDURE PRN, Starting on Freya 12/25/13 at 0737, Until Freya 12/25/13 at 1018, Routine, Anesthesia Intra-op Given 12/25/2013 8:05 AM CDT 25 mg Given 12/25/2013 7:38 AM CDT 15 mg Given 12/25/2013 7:37 AM CDT 10 mg documented in this encounter Care Teams Certified Income Tax Preparer Relationship Specialty Start Date End Date Kristopher Brown MD [address] [address] PCP - General Family Practice 12/19/13 documented as of this encounter
--- OUTSIDE RECORDS SUMMARY | 2024-04-28 23:47 | XMS_ITS | Encounter Summary ---
Author Organization [facility] Address [address] [place] [address] Care Team Providers Care Body Bumper Name Role Phone Kristopher Brown MD Primary Care Provider [phone] Reason for Visit * Auth/Cert Specialty Diagnoses / Procedures Referred By Contac t Referred To Contact General Surgery Diagnoses LUMBAR HNP Procedures SPINAL MICRODISCECTOMY MINIMALLY INVASIVE [facility] [address] [place] [address] Referral ID Status Reason Start Date Expiration Date Visits Re quested Visits Authorized [id number] 1 1 Encounter Details Date Type Department Care Team (Latest Contact Info) Description 12/25/2013 5:26 AM CDT - 12/25/2013 7:00 PM CDT Hospital Encounter [facility] [place] [address] [place] [address] Haley Hagne MD [address] [facility] [address] [address] -[phone] (Work) Discharge Disposition: Home or Self Care Social History Tobacco Use Types Packs/Day Years Used Date Smoking Tobacco: Never Alcohol Use Standard Drinks/Week Comments Yes 3.3 (1 standard drink = 0.6 oz p ure alcohol) Sex and Gender Information Value Date Recorded Sex Assigned at Not on file Gender Identity Not on file Sexual Orientation Not on file documented as of this encounter Last Filed Vital Signs Vital Sign Reading Time Taken Comments Blood Pressure 106/52 12/25/2013 6:35 PM CDT Pulse 78 12/25/2013 6:35 PM CDT Temperature 36.6 ??C (97.8 ??F) 12/25/2013 6:35 PM CD T Respiratory Rate 16 12/25/2013 6:35 PM CDT Oxygen Saturation 97% 12/25/2013 6:35 PM CDT Inhaled Oxygen Concentration - - Weight 68 kg (150 lb) 12/25/2013 6:19 AM CDT Height 162.6 cm (5' 4 ) 12/19/2013 10:46 AM CDT Body Mass Index 25.75 12/19/2013 10:46 AM CDT documented in this encounter Discharge Instructions * Discharge Instructions* Aurea Gallardo PA - 12/25/2013 10:26 AM CDT Thank you for choosing [facility] for your care! The following is a list of instructions, from your provider, to follow upon your discharge to ensure you have the optimal recovery from your recent injury or surgery. - If you don't have a follow up appointment already made, follow up with Dr. Hagen in 3-4 weeks > Please call Dr. Hagen's office in the next 1-2 days to make your appointment at [phone]. Feel free to call for any further questions or concerns. - Medications will be prescribed for you at your provider???s discretion. These medications are to be used as instructed; if they are taken more often that prescribed they will not be refilled early and in most cases will not be refilled at all. > When a refill is needed, you should contact our office 2-3 business days before your prescription runs out. Medications will NOT be refilled by ???road traffic controller?? providers after hours! > Many pain medications contain Tylenol (Acetaminophen). Do not consume more than 4,000 mg of Tylenol per day in total with any combination of medications. > Pain medications can cause constipation. Please use an over the counter stool softener as directed, while taking pain medications. Consult your local pharmacist with questions or recommendationson stool softeners. If constipation persists, contact our office or your primary care provider. > While under our care, you are not to receive pain medications or other controlled substances from any other provider unless our office is notified and approves. Any attempts to do so will resultin refusal to prescribe any further pain medications and possible dismissal from our practice. - Your wound and/or dressing should remain clean and dry for 2 days after surgery. On postoperativeday 2 the dressing (if present) should be removed and it is okay to shower and get the incision wet. Pad dry afterwards. No further dressing should be required from that point on. Do not put any creams or ointments on the incision > It is normal for there to be a small amount of discharge (bloody or blood tinged) present froma surgical wound for the first 1-3 days. > The wound should be examined twice a day for signs of infection. Mild redness or bruising is to be expected but indications that an infection may be starting would include; An increase in redness, swelling, or discharge, a foul odor present around the incision, and/or a fever greater than 101 ??F - Showering is permitted, however we ask that you do not take a bath, sit in a whirlpool / Jacuzzi,or go swimming until further notice. For only the first 2 days after surgery, it will be necessary for you to cover your wound/dressing with plastic and tape to keep it dry. - Walking is essential for the healing process after surgery. We would like you to slowly advance your walking. This should be done on relatively flat clear ground (inside or out) or can be done on atreadmill. Remember this goal does not have to happen all at once, slowly increase your distance and duration. This can be broken into more more than one walk per day as tolerated. Patients who walk a s directed after surgery rarely require Physical Therapy. In the unlikely event this issue arises your provider will direct hospital staff to make the appropriate arrangements. - No lifting over 5 pounds (a gallon of milk) or bending/twisting until further notice. Each of these activities places an unnecessary amount of stress onto the body and can impede the delicate healing process. > Instead of bending at the waist, keep your back straight and bend at the knees. > Instead of twisting your torso, keep your back straight and turn your entire body with your feet. - You may sleep in any position which makes you comfortable. Many patients find comfort sleeping blue reclining chair. It is not abnormal to have difficulty sleeping for the first several weeks following your surgery. We recommend trying Benadryl or Tylenol PM as directed to help with your sleepingdifficulties. Both medications are over the counter and available without prescription. - NO SMOKING!!! Smoking dramatically increases the probability of developing postoperative wound infections - Common complaints after lumbar and/or thoracic spine surgery include, but are not limited to: numbness and/or tingling in the legs, pain around the incision and surrounding tissues, muscle spasms, or stiffness of the middle to low back. Contact our office if these symptoms persist or if an acute change occurs. - No driving for the first 5 days, and not while taking narcotics until seen at your follow-up appointment and cleared. There are no restrictions for riding on short trips, however if you take a longer trip, arrangements should be made to make regular stops to get out of the vehicle and ???stretch?? . - Swelling is an unfortunate event that will take place with any surgery and is the primary source of your postoperative discomfort. While walking and regular approved activities helps control inflammation, there are additional steps you can take to minimize swelling. > Place ice over the surgical site and surrounding tissue for twenty minutes, followed by applying a low/medium heat (heating pad) for an additional twenty minutes every 1-2 hours as needed for pain relief. > you may use use of over the counter anti-inflammatory medications (Ibuprofen, Motrin, Aleve, Advil, etc) as directed on the package label will significantly reduce the amount of discomfort you experience after surgery from swelling. It should be noted that if you have and allergy to any of these medications, or a history of ulcers or kidney disease you should consult you primary care provider prior to starting these medications. documented in this encounter Medications at Time of Discharge Medication Sig Dispensed Refills Start Date End Date HYDROcodone-acetaminophen (NORCO) 5-325 mg tablet Take 1 Tab by mouth every 4 hours as needed for Pain, Moderate. 90 Tab 0 12/25/2013 multivitamin (DAILY-SIERRA) tablet Take 1 Tab by mouth daily. CALCIUM CARBONATE (CALCIUM 500 ORAL) Take by mouth. 0mega-3 fatty acids-vitamin E (FISH OIL) 1,000 mg Capsule Take 1,000 mg by mouth. ibuprofen (MOTRIN) 200 mg tablet Take 200 mg by mouth every 6 hours as needed for Pain, Mild. documented as of this encounter Progress Notes * Aurea Gallardo PA - 12/25/2013 10:14 AM CDT [place], [place] [address] Neurosurgery Brief Operative Note Aracelis Gao 1955 [id number] Today's Date: 12/25/2013 Pre-op Dx: lumbar radiculopathy Post op Dx: Same Surgery Performed: MIS right L4/L5 hemilaminectom and decompressiony and far lateral microdisectomy Specimen: None EBL: 25cc Anesthesia: General Complications: None Surgeon: Dr. Hieu M.D. Assist: Aurea Gallardo PA-C * Haley Hagen MD - 12/25/2013 10:14 AM CDT Dictation: #[id number] documented in this encounter H&P Notes * Haley Hagen MD - 12/25/2013 7:11 AM CDT Pre-surgery Note Aracelis Gao is a 58 y.o. female with Lumbar disc herniation. There have been no significant changes to patient's clinical exam or status since H&P or last progress note. Patient's cardiopulmonary status is stable and surgical consent has been reviewed and in the chart. All questions of the patient and family have been answered to their satisfaction and to their level of understanding. Risks of recurrent disease, need for additional treatment, nonunion,infection, paralysis, hematoma, CSF leak have been discussed in detail. The patient and family consent to surgery and wish to proceed. Right L4/5 hemilaminectomy and microdiscectomy Haley Hagen MD 12/25/2013 * Aurea Gallardo PA - 12/25/2013 7:08 AM CDT [place], [place] [address] HISTORY AND PHYSICAL PATIENT NAME: Aracelis Gao CSN: [id number] ADMITTING PHYSICIAN: Haley Hagen MD PRIMARY CARE PROVIDER: Kristopher Brown MD Admission Diagnosis: Lumbar radiculopathy and right L4/5 herniated disc HPI Patient is a 58 y.o. female admitted for right L4-5 discectomy. Onset of symptoms was several months ago, gradually worsening since that time. The pain is rated severe, and is located at the right lumbar area or radiating to right leg(s). The pain is described as aching or sharp and is intermittent. The patient admits to progressive symptoms. Symptoms are exacerbated by activity. Patient has failed conservative treatment. Past Medical History Diagnosis Date ??? Disc herniation ??? Patient denies relevant medical history Past Surgical History Procedure Laterality Date ??? Pt denies relevant surgical history ??? Hx colonoscopy Allergies Allergen Reactions ??? Codeine Nausea and Vomiting ??? Penicillins Other (See Comments) Unknown-child Prior to Admission medications Medication Sig Start Date End Date Taking? Authorizing Provider multivitamin (DAILY-SIERRA) tablet Take 1 Tab by mouth daily. Provider, Historical CALCIUM CARBONATE (CALCIUM 500 ORAL) Take by mouth. Provider, Historical 0mega-3 fatty acids-vitamin E (FISH OIL) 1,000 mg Capsule Take 1,000 mg by mouth. Provider, Historical ibuprofen (MOTRIN) 200 mg tablet Take 200 mg by mouth every 6 hours as needed for Pain, Mild. Provider, Historical History Substance Use Topics ??? Smoking status: Never Smoker ??? Smokeless tobacco: Not on file ??? Alcohol Use: 2.0 oz/week 2 Glasses of wine, 2 Cans of beer per week No family history on file. 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 Cardiovascular: Patient denies chest pain, edema??or palpitations Respiratory: patient denies any shortness of breath, cough, sputum production GI: patient denies any nausea, vomiting, diarrhea, constipation or abdominal pain : negative Muskuloskeletal: negative for muscular disease, arthritis & joint pain Integumentary: negative for skin rashes or unusual skin lesions abrasion, laceration Endocrine: patient denies polydipsia, polyphasia or nervousness. Psychiatric: negative Physical Exam The patient is alert and orientated Cardiovascular: Normal - Regular rate and rhythm Respiratory: no accessory muscle use Gastrointestinal: soft or nontender NEURO: CNII-XII grossly intact, PERRL, EOM's intact. Motor of UE's: 5/5, Motor of LE's: 5/5 Sensory: Pinprick is intact throughout, proprioception intact Reflexes: 2/4 throughout upper and lower extremities except, Plantar responses were flexor bilaterally Impression Low back pain withright L4-5 herniated nucleus pulposus. Patient has failed conservative therapy. Plan: Surgery will consist of a MIS right L4-5 discetomy. The risks and benefits of the surgery were explained, including no guarantee for success. The patient wishes to proceed with the procedure as planned and consents to surgery. Aurea Gallardo PA-C documented in this encounter OR Notes * Operative Report - Haley Hagen MD - 12/25/2013 7:55 PM CDT [place], [place] [address] Operative Report CSN: [id number] DATE OF SERVICE: 12/25/2013 SURGEON Haley Hagen MD PREOPERATIVE DIAGNOSIS Lumbar disk herniation. POSTOPERATIVE DIAGNOSIS Lumbar disk herniation. OPERATION NAME 1. Far lateral approach to lumbar disk herniation. 2. Hemilaminectomy and microdiskectomy. DIGITAL ADVERTISING SPECIALIST Aurea Gallardo PA-C, who participated in both the transportation and positioning of the patient, and also participated throughout the procedure providing retraction, suction, and irrigation. DESCRIPTION OF PROCEDURE The patient was brought to the operating room. She was placed in supine position. General endotracheal anesthesia was induced. Following that, the patient was turned to the prone position on a Wilsonframe. All pressure points were checked and padded. Following that, she was then marked at the L4-5disk space. I had previously discussed with the patient, I planned both a far lateral approach and a medial approach in order to explore her nerve and make sure that she had a complete decompression.We initially started with a far lateral approach. I marked an incision centered over the foramen approximately a 1.5 to 2 cm from the midline. Following that, she was prepped and draped in usual steri le fashion. I used a #10 blade scalpel to make an incision down through the fascia, then using the EvverRx system, I used a series of dilators to dilate down through the skin until it was centered over the area that would include the pars in the superior aspect of the L4-5 facet. I brought the microscope into the field. I then removed any overlying muscle. I was able to be identify the superior aspect of the facet, the location of the pars and also able to identify the lateral aspect ofthe facet in the transverse process using instruments and inspection. Once I was comfortable with my orientation, I then used a drill to remove a portion of the pars along with some overgrown bone that was in the area of the foramen and a very small part of the superior aspect of the facet of L4-5.As I drilled down, I was able to identify some soft tissue. I used a Kerrison punch to further the resection both inferiorly and superiorly identified where the pedicle was inferiorly. At that time, using a [place] 4, I was able to identify the nerve root. I then extended to go inferiorly and find the disk herniation. The disk herniation was able to be palpated. This was very firm and hard. I then retracted the nerve root superiorly and was able to remove several pieces of very firm disk herniation until I felt the nerve root was well decompressed. I continued this vigorously using a hook, using a Kerrison punch, and using curettes in order to free up the very firm piece of disk herniation. There was some that was residual that I was unable to remove, however, I did feel that the nerve was well decompressed. At that time, I completed the decompression. At that time, I removed the dilator. I then recentered my dilator over the inferior aspect of the L4 lamina. I then repeated my dilation until I was able to find the area of the inferior aspect of the L4 lamina. I then used the microscope. I removed any overlying soft tissue, identifying the area for the inferior hemilaminectomy. Iused a drill to perform the inferior hemilaminectomy. Once that was complete, I removed the underlying ligamentum flavum, and identified the dura. I retracted the dura medially and inspected the nerve. I saw no evidence of disk herniation within the canal or any that was able to be palpated throughthe foramen. I was very careful not to cause any instability or disconnect the pars. At that time, I copiously irrigated the wound with bacteriostatic normal saline. I was able to place Depo-Medrol in the base of both defects and then removed the tube system. I obtained hemostasis using monopolar and bipolar cautery. I then closed the wound first by reapproximating the fascia, then by reapproximating the skin edges, and lastly by closing the skin using SureClose. The patient was turned back in the supine position and extubated without difficulty and taken to PACU in hemodynamically stable condition. There were no complications for this case. All sponge and needle counts were correct. TQ:MEDQ DID: [id number] Dictated by: Haley Hagen MD * Khushi-OP - Louise Pantoja RN - 12/25/2013 11:43 AM CDT Pt dropped her oxygen levels to 79% on ra pt placed on 2l nc o2 will move to aciu for further monitoring will be able to be discharged by criteria when able to tolerate room air * Anesthesia Handoff - Francie Reyes CRNA - 12/25/2013 10:18 AM CDT Post-Anesthetic transfer of care report elements to appropriate post-anesthesia recovery environment completed in accordance with procedure. Pt exchanging well VSS Vital Signs: BP: 110/57 mmHg (12/25/2013 10:12 AM) Pulse: 70 (12/25/2013 6:19 AM) Heart Rate (Monitored): 75 bpm (12/25/2013 10:12 AM) Temp: 36.9 ??C (12/25/2013 10:12 AM) Resp: 14 (12/25/2013 10:12 AM) SpO2: 100 % (12/25/2013 10:12 AM) 10:18 AM Francie Reyes CRNA documented in this encounter Miscellaneous Notes * Care Plan - Jorge Hoang RN - 12/25/2013 1:06 PM CDT Knowledge deficit related to post-discharge care Interventions: Assess learning needs and willingness to learn; give clear, concise explanations of the care required post-discharge; address patient/family questions and concerns; provide teaching asindicated Expected Outcome: Patient and/or family/significant other demonstrate(s) behaviors required for performance of activities enhancing recovery post-discharge Outcome Met: yes Potential for pain related to surgical/procedural intervention Interventions: Assess level of pain/comfort utilizing verbal/nonverbal pain scales; assess culturalor yarsani indicators attached to pain; administer pain medications as prescribed; utilize non-pharmacologic pain control and comfort measures Expected Outcome: Patient demonstrates and reports adequate pain control Outcome Met: yes * Care Plan - Kristan Anderson RN - 12/25/2013 6:01 AM CDT Potential for anxiety related to surgical intervention Interventions: convey caring/supportive attitude; offer emotional support as needed; provide comfort measures (warm blanket, pillow, quiet environment); allow patient opportunity to verbalize concerns/fears/questions; explore coping behaviors; allow age-specific/special needs family support Expected Outcome: Patient will demonstrate decreased anxiety or adaptive coping strategies Outcome Met: comfort measures offered Potential for pain related to surgical/procedural intervention Interventions: Assess level of pain/comfort utilizing verbal/nonverbal pain scales; assess culturalor yarsani indicators attached to pain; administer pain medications as prescribed; utilize non-pharmacologic pain control and comfort measures Expected Outcome: Patient demonstrates and reports adequate pain control Outcome Met: denies any pain documented in this encounter Plan of Treatment Not on file documented as of this encounter Procedures Procedure Name Priority Date/Time Associated Diagnosis Comments TELEMETRY REPORT 01/01/2014 6:39 PM CDT XR FLUORO LESS THAN 1 HOUR Routine 12/25/2013 9:50 AM CDT SPINAL MICRODISCECTOMY MINIMALLY INVASIVE 12/25/2013 7:00 AM CDT LUMBAR HNP Case Notes [facility]--PP documented in this encounter Results * TELEMETRY REPORT (01/01/2014 6:39 PM CDT) Provider Scanning ECG ORDERABLES * XR FLUORO LESS THAN 1 HOUR (12/25/2013 9:50 AM CDT) Anatomical Region Laterality Modality Computed Radiogr aphy 12/25/2013 7:49 AM CDT Narrative 12/25/2013 2:00 PM CDT FLUOROSCOPY LESS THAN ONE HOUR, 12/25/2013 HISTORY: Lumbar disc herniation. FINDINGS: Intraoperative fluoroscopic guidance was provided for Dr. Hagen during lumbar surgery. A series of crosstable lateral intraoperative fluoroscopic spot films shows placement of the tube/scope and instrumentation at the L4-L5 disc space level posteriorly. Fluoroscopy time: 14 seconds. Dictated from Location 1: [facility] Procedure Note Jarad Troncoso MD - 12/25/2013 FLUOROSCOPY LESS THAN ONE HOUR, 12/25/2013 HISTORY: Lumbar disc herniation. FINDINGS: Intraoperative fluoroscopic guidance was provided for Dr. Hagen during lumbar surgery. A series of crosstable lateral intraoperative fluoroscopic spot films shows placement of the tube/scope and instrumentation at the L4-L5 disc space level posteriorly. Fluoroscopy time: 14 seconds. Dictated from Location 1: [facility] Haley Hagen MD DIAGNOSTIC IMAGING O RDERABLES documented in this encounter Visit Diagnoses Not on filedocumented in this encounter Administered Medications Inactive Administered Medications - up to 3 most recent administrations Medication Order MAR Action Action Date Dose Rate Site fentaNYL PF (SUBLIMAZE) 50 mcg/mL injection 50 mcg 50 mcg, IV, POST-PROCEDURE Q 3 MINUTES PRN, 5 doses, Starting on Freya 12/25/13 at 0643, Until Freya 12/25/13 at 1217, Pain, Mild, For pain scale 1-3, Routine, PACU Given 12/25/2013 10:50 AM CDT 50 mcg Given 12/25/2013 10:42 AM CDT 50 mcg HYDROcodone-acetaminophen (NORCO) 5-325 mg per tablet 1 Tab 1 Tablet, Oral, EVERY 4 HOURS PRN, Starting on Freya 12/25/13 at 1017, Until Freya 12/25/13 at 2120, Pain, Moderate, Routine Given 12/25/2013 1:52 PM CDT 1 Tablet lactated ringers solution IV, at 150 mL/hr, PRE-PROCEDURE CONTINUOUS, Starting on Freya 12/25/13 at 0615, Until Freya 12/25/13 at 1217, Routine, Pre-op New Bag 12/25/2013 8:40 AM CDT New Bag 12/25/2013 6:33 AM CDT 150 mL/hr lidocaine PF 2 % (XYLOCAINE MPF) injection 0.3 mL 0.3 mL, See Admin Instructions, ONE TIME PRN, 1 dose, Starting on Freya 12/25/13 at 0602, Until Freya 12/25/13 at 0634, .., Routine, Pre-op Given 12/25/2013 6:34 AM CDT 0.[address], Right vancomycin (VANCOCIN) IVPB 1,000 mg 1,000 mg (15 mg/kg ? 67.1 kg), IV, PRE-PROCEDURE ONCE, 1 dose, Starting on Freya 12/25/13 at 0602, Until Freya 12/25/13 at 0748, Routine, Pre-op, Antibiotic Indication: Surgical prophylaxis New Bag 12/25/2013 6:48 AM CDT 1,000 mg documented in this encounter Active and Recently Administered Medications Times are shown in CDT. Scheduled Medication Order 12/23/2013 12/24/2013 12/25/2013 vancomycin (VANCOCIN) IVPB 1,000 mg (COMPLETED) 1,000 mg (15 mg/kg ? 67.1 kg), IV, PRE-PROCEDURE ONCE, 1 dose, Starting on Freya 12/25/13 at 0602, Until Freya 12/25/13 at 0748, Routine, Pre-op, Antibiotic Indication: Surgical prophylaxis 0648 (New Bag - Prov ider: Kristan Anderson RN) Continuous Medication Order 12/23/2013 12/24/201312/25/2013 lactated ringers solution (CANCELED) IV, at 150 mL/hr, PRE-PROCEDURE CONTINUOUS, Starting on Freya 12/25/13 at 0615, Until Freya 12/25/13 at 1217, Routine, Pre-op 0633 (New Bag - Prov ider: Kristan Anderson RN)0840 (New Bag - Provider: Francie Reyes CRNA)0958 (Fluid Volume - Provider: Francie Reyes CRNA) PRN Medication Order 12/23/2013 12/24/2013 12/25/2013 bacitracin (BACI-IM) 50,000 Units in sodium chloride 0.9 % irrigation 500 mL IRRIGATION (CANCELED) INTRA-PROCEDURE PRN, Starting on Freya 12/25/13 at 0820, Until Freya 12/25/13 at 1010, Routine, Intra-op 0820 (Given - Provid er: Haley Hagen MD) bupivacaine-EPINEPHrine (SENSORCAINE-EPINEPHRINE) 0.5 %-1:200,000 injection (CANCELED) INTRA-PROCEDURE PRN, Starting on Freya 12/25/13 at 0822, Until Freya 12/25/13 at 1010, Routine, Intra-op 0822 (Given - Provid er: Haley Hagen MD - Comment: injected PRN by surgeon) fentaNYL PF (SUBLIMAZE) 50 mcg/mL injection 50 mcg (CANCELED) 50 mcg, IV, POST-PROCEDURE Q 3 MINUTES PRN, 5 doses, Starting on Freya 12/25/13 at 0643, Until Freya 12/25/13 at 1217, Pain, Mild, For pain scale 1-3, Routine, PACU 1042 (Given - Provid er: Isis Pearl, ISABEL)1050 (Given - Provider: Isis Pearl RN) HYDROcodone-acetaminophen (NORCO) 5-325 mg per tablet 1 Tab 1 Tablet, Oral, EVERY 4 HOURS PRN, Starting on Freya 12/25/13 at 1017, Until Freya 12/25/13 at 2120, Pain, Moderate, Routine 1352 (Given - Provid er: Monica Arroyo RN) lidocaine PF 2 % (XYLOCAINE MPF) injection 0.3 mL (COMPLETED) 0.3 mL, See Admin Instructions, ONE TIME PRN, 1 dose, Starting on Freya 12/25/13 at 0602, Until Freya 12/25/13 at 0634, .., Routine, Pre-op 0634 (Given - Provid er: Kristan Anderson RN) methylPREDNISolone Acetate (DEPO-MEDROL) injection (CANCELED) INTRA-PROCEDURE PRN, Starting on Freya 12/25/13 at 0914, Until Freya 12/25/13 at 1010, Routine, Intra-op 0914 (Given - Provid er: Haley Hagen MD - Comment: sprayed into surgical site by surgeon) water sterile irrigation irrigation (CANCELED) INTRA-PROCEDURE PRN, Starting on Freya 12/25/13 at 0823, Until Freya 12/25/13 at 1010, Routine, Intra-op 0823 (Given - Provid er: Haley Hagen MD - Comment: used to rinse instruments not used on pt) documented in this encounter Care Teams Body Bumper Relationship Specialty Start Date End Date Kristopher Brown MD [address] [place] [address] PCP - General Family Practice 12/19/13 documented as of this encounter
--- OUTSIDE RECORDS SUMMARY | 2024-04-28 23:47 | XMS_ITS | Clinical Summary ---
Author Organization [facility] Address [address] [place] [phone] Phone Care Team Providers Care Video Producer Name Role Phone Kristopher Brown MD Primary Care Provider [phone] Allergies Active Allergy Reactions Criticality Noted Date Comments Codeine Nausea and Vomiting Low 12/19/2013 Penicillins Other (See Comments) 12/19/2013 Unknown-child Medications Medication Sig Dispensed Refills Start Date End Date Status multivitamin (DAILY-SIERRA) tablet Take 1 Tab by mouth daily. Active CALCIUM CARBONATE (CALCIUM 500 ORAL) Take by mouth. Ac tive 0mega-3 fatty acids-vitamin E (FISH OIL) 1,000 mg Capsule Take 1,000 mg by mouth. Active ibuprofen (MOTRIN) 200 mg tablet Take 200 mg by mouth every 6 hours as needed for Pain, Mild. Active HYDROcodone-acetaminop hen (NORCO) 5-325 mg tablet Take 1 Tab by mouth every 4 hours as needed for Pain, Moderate. 90 Tab 0 12/25/2013 Active Active Problems No known active problems Social History Tobacco Use Types Packs/Day Years Used Date Smoking Tobacco: Never Alcohol Use Standard Drinks/Week Comments Yes 3.3 (1 standard drink = 0.6 oz p ure alcohol) Sex and Gender Information Value Date Recorded Sex Assigned at Not on file Gender Identity Not on file Sexual Orientation Not on file Last Filed Vital Signs Vital Sign Reading [...] Mass Index 25.75 12/19/2013 10:46 AM CDT Plan of Treatment Health Maintenance Due Date Last Done Comments DTAP/TDAP/TD VACCINES (1 - Tdap) 1976 BREAST CANCER SCREENING 1997 COLORECTAL SCREENING 2002 Colorectal Cancer Screening 2002 FIT-DNA Q 3 years 2002 FIT/FOBT Q 1 year 2002 Flex Sig/CT Colonography Q 5 years 2002 ZOSTER VACCINE (1 of 2) 2007 OSTEOPOROSIS SCREENING 2022 PNEUMOCOCCAL VACCINE 65+ YEARS (1 of 1 - PCV) 03/11/20 INFLUENZA VACCINE (#1) 2023 RSV VACCINE (60+ or ) (1 - 1-dose 75+ series) 2032 Medical Devices Implanted Type Area Furnace Converter Device Identifier Shelf Expiration Date Model / Serial / Lot Sealant Floseal W/ Adptr 10ml [id number] - [id number] Implanted:Qty : 1 on 12/25/2013 by Haley Hagen MD at [facility] Sealant Right: Spine Lumbar WHITE- BIOSCIENCE 02/26/2015 [id number] / / [id number] Advance Directives For more information, please contact: [phone] * Full Code (Latest Code Status on File) Date Activated Date Inactivated Comments 12/25/2013 6:02 AM 12/25/2013 9:20 PM Care Teams Video Producer Relationship Specialty Start Date End Date Kristopher Brown MD [address] [place] [address] PCP - General Family Practice 12/19/13
--- OUTSIDE RECORDS SUMMARY | 2024-04-28 23:47 | XMS_ITS | Encounter Summary ---
Author Organization [facility] Address [address] [place] [address] Care Team Providers Care Integrated Circuits Inspector Name Role Phone Kristopher Brown MD Primary Care Provider [phone] Encounter Details Date Type Department Care Team (Latest Contact Info) Description 12/19/2013 10:26 AM CDT - 12/19/2013 11:59 PM CDT Hospital Encounter [facility] [address] [place] [address] Haley Hagen MD [address] [facility] [address] [address] -x0 (Work) Discharge Disposition: Home or Self Care Anesthesia Record Procedure Summary Procedure Name Responsible [...] an stop data 1017 An Stop Meds * Agents No agents on file. * Blood No blood administrations on file. Lines, Drains, and Airways Type Details Placement Removal NG/OG Tube Present on Admission : No; Type: Foard sump, orogastric; Size: 18 Fr; Location: mouth, center 12/25/13 0801 by Peripheral IV Pre-Hospital [...] Sign Reading Time Taken Comments Blood Pressure 110/63 12/19/2013 10:45 AM CDT Pulse 67 12/19/2013 10:45 AM CDT Temperature - - Respiratory Rate - - Oxygen Saturation 100% 12/19/2013 10:45 AM CDT Inhaled Oxygen Concentration - - Weight 67.1 kg (148 lb) 12/19/2013 10:45 AM CDT Height 162.6 cm (5' 4 ) 12/19/2013 10:45 AM CDT Body Mass Index 25.4 12/19/2013 10:45 AM CDT documented in this encounter Medications at Time [...] Pain, Mild. documented as of this encounter OR Notes * Anesthesia PAT Evaluation - Ifeanyi Hidalgo MD - 12/19/2013 11:00 AM CDT Pre-Procedure Anesthesiology Consultation and Evaluation (PACE) Service 12/19/2013 11:00 AM Name: Aracelis Gao Age: 58 y.o. Sex: female CSN: [id number] Procedure: SPINAL MICRODISCECTOMY MINIMALLY INVASIVE, FAR LATERAL RT. L4-5 (Right Allergies Allergen Reactions ??? Codeine Nausea and Vomiting ??? Penicillins Other (See Comments) Unknown-child Current Outpatient Prescriptions Medication Sig Dispense Refill ??? multivitamin (DAILY-SIERRA) tablet Take 1 Tab by mouth daily. ??? CALCIUM CARBONATE (CALCIUM 500 ORAL) Take by mouth. ??? 0mega-3 fatty acids-vitamin E (FISH OIL) 1,000 mg Capsule Take 1,000 mg by mouth. ??? ibuprofen (MOTRIN) 200 mg tablet Take 200 mg by mouth every 6 hours as needed for Pain, Mild. No current facility-administered medications for this encounter. Advised pt to take the following medications AM DOS: Advised pt to stop the following medications on : There are no active problems to display for this patient. Past Medical History Diagnosis Date ??? Disc herniation Past Surgical History Procedure Laterality Date ??? Pt denies relevant surgical history ??? Hx colonoscopy History Substance Use Topics ??? Smoking status: Never Smoker ??? Smokeless tobacco: Not on file ??? Alcohol Use: 2.0 oz/week 2 Glasses of wine, 2 Cans of beer per week No family history on file. Previous Anesthesia Problems/Concerns: No anesthesia problems/complications History of PONV No Review of Systems Cardiovascular: negative. Good ET, no cardiac history Respiratory: negative,Snoring - No, OTF - No Gastrointestinal: negative. Genitourinary:negative. Musculoskeletal: positive for back pain Neurological: negative Endocrine negative PHYSICAL EXAM BP 110/63 Pulse 67 Ht 5' 4 (1.626 m) Wt 148 lb (67.132 kg) BMI 25.39 kg/m2 SpO2 100% Weight: Weight: 148 lb (67.132 kg) (12/19/13 1045) Height: Ht Readings from Last 1 Encounters: 12/19/13 5' 4 (1.626 m) BMI: Body mass index is 25.39 kg/(m^2). General Appearance: Alert, oriented, no acute distress Airway: normal range of motion; Airway Class: II (soft palate, uvula, fauces visible); Special Considerations Thyromental Distance 3+ Finger Breadth Dentition: good and lower dentures Lungs: clear to auscultation bilaterally, normal respiratory effort Heart: regular rate and rhythm, S1, S2 normal, no murmur, click, rub or gallop Neuro: alert, oriented x 3, no defects noted in general exam. Extremities: extremities normal, atraumatic, no cyanosis or edema LABS No results found for this basename: WBC, MANUALWBC, HGB, HGBPOC, HCT, HCTPOC, PLT, MCV No results found for this basename: NA, K, CL, CO2, CA, BUN, CREAT, GLUCOSE, ANIONGAP, BCRATIO No results found for this basename: INR, PT, PROTIMEPOC No results found for this basename: HCGURPOC, HCGQUALUR, HCGQUAL, HCGQUANT, HCGINTACT EKG: normal sinus rhythm Other Studies/Considerations: None Risks/Alternatives discussed. Questions solicited and answered. Yes Postop pain management discussed yes Smoking/Tobacco Counseling: None Recommendations:None REPORT AND NECESSARY FOLLOW-UP History and physical performed in [place]; tests (ECG, blood work) reviewed. Abnormal Results Found: no Further Testing or Evaluation Required: no Final [place] Center Review: May proceed with procedure/surgery: yes Ifeanyi Hidalgo MD documented in this encounter Plan of Treatment Not on file documented as of this encounter Procedures Procedure Name Priority Date/Time Associated Diagnosis Comments HEMOGLOBIN AND HEMATOCRIT Routine 12/19/2013 10:55 AM CDT TYPE AND SCREEN Routine 12/19/2013 10:55 AM CDT EKG 12-LEAD Routine 12/19/2013 10:35 AM CDT documented in this encounter Results * TYPE AND SCREEN (12/19/2013 10:55 AM CDT) SPECIMEN LIFE 3 days from OR date [facility] HISTORY CHECK No Historical ABO/Rh [facility] ANTIBODY SCREEN Negative [facility] ABO/RH TYPE O Positive [facility] Blood specimen (specimen) 12/19/2013 10:55 AM CDT 12/19/2013 12:06 PM CDT Haley Hagen MD BLOOD BANK ORDERABLE S [facility] Hole [facility] [id number] [address] [place] [address] * HEMOGLOBIN AND HEMATOCRIT (12/19/2013 10:55 AM CDT) HEMOGLOBIN 12.8 11.8 - 14.8 g/dL [facility] [address] [facility] HEMATOCRIT 39.2 35.5 - 44.0 % [facility] Blood 12/19/2013 10:5 5 AM CDT 12/19/2013 12:06 PM CDT Narrative [facility] - 12/19/2013 12:21 PM CDT 9 Haley Hagen MD HEMATOLOGY ORDERABLE S [facility] [address] [facility] CLIA# [id number] [address] [place] [address] * EKG 12-LEAD (12/19/2013 10:35 AM CDT) 12/19/2013 10:3 5 AM CDT Narrative INTERFACE SYSTEM - 12/19/2013 1:29 PM CDT ? Stationary ECG Study ? [facility] ? Test Date: ?12/19/2013 10:35:10 AM ? Pat Name: ? Aracelis Gao ?Department: ?? 8 ?Room: ? Gender: ? F ?Voice Systems Engineer: ?? harrdd ? : ?1955 ? Requested by: Haley Potter ? Order Number: [id number] ?Reading MD: ?? Shad Garcia ? Intervals ?[place] ? Rate: ? 70 ? P: ?79 ? [place]: ? 142 ?QRS: ?62 ? QRSD: ? 82 ? T: ?56 ? QT: ? 385 ? QTc: ?405 ? Interpretive Statements SINUS RHYTHM No previous ECG available for comparison Electronically Signed On 12-19-13 13:29:29 CDT by Shad Garcia Procedure Note Provider, Historical - 12/19/2013 Stationary ECG Study [facility] Test Date: 12/19/2013 10:35:10 AM Pat Name: Aracelis Gao Department: 8 Room: Gender: F Voice Systems Engineer: gerard : 1955 Requested by: Haley Potter Order Number: [id number] Reading MD: Shad Garcia Intervals [place] Rate: 70 P: 79 [place]: 142 QRS: 62 QRSD: 82 T: 56 QT: 385 QTc: 405 Interpretive Statements SINUS RHYTHM No previous ECG available for comparison Electronically Signed On 12-19-13 13:29:29 CDT by Shad Garcia Ifeanyi Hidalgo MD ECG ORDERABLES INTERFACE SYSTEM Refer to clinic/hospital department documented in this encounter Visit Diagnoses Not on filedocumented in this encounter Care Teams Integrated Circuits Inspector Relationship Specialty Start Date End Date Kristopher Brown MD [address] [place] [id number] PCP - General Family Practice 12/19/13 documented as of this encounter
--- OUTSIDE RECORDS SUMMARY | 2024-04-28 23:47 | XMS_ITS | Encounter Summary ---
Author Organization [facility] Address [address] [place] [address] Care Team Providers Care Director Mba Name Role Phone Kristopher Brown MD Primary Care Provider [phone] Reason for Visit * Auth/Cert Specialty Diagnoses / Procedures Referred By Contac t Referred To Contact General Surgery Diagnoses LUMBAR HNP Procedures SPINAL MICRODISCECTOMY MINIMALLY INVASIVE [facility] Or [address] [place] [address] Referral ID Status Reason Start Date Expiration Date Visits Re quested Visits Authorized [id number] 1 1 Encounter Details Date Type Department Care Team (Late st Contact Info) Description 12/25/2013 7:15 AM CDT - 12/25/2013 9:45 AM CDT Surgery [facility] Operating Room [address] [place] [address] Haley Hagen MD [address] [facility] [address] [address] -x0 (Work) SPINAL MICRODISCECTOMY MINIMALLY INVASIVE, FAR LATERAL RT. L4-5 Surgery Details Date/Time Status Location OR Service Patient Class Case Class Case Type Trauma Case? 12/25/2013 7:15 AM Posted [facility] OR MAIN OR 28 Neurological Surgery Surgical OP/Extended Care Elective No Panel 1 Procedure LRB Anes Op Region Wound Class Comments SPINAL MICRODISCECTOMY MINIMALLY INVASIVE, FAR LATERAL RT. L4-5 Right General Spine Lumbar Clean-I W/ MEDTRONIC PQ 12/19 Surgeon Surgeon Role Service Panel Haley Hagen MD Primary Neurological Surgery 1 Case Notes [facility]--PP documented in this encounter Social History Tobacco [...] Sign Reading Time Taken Comments Blood Pressure 111/59 12/25/2013 6:19 AM CDT Pulse 70 12/25/2013 6:19 AM CDT Temperature 36.2 ??C (97.1 ??F) 12/25/2013 6:19 AM CD T Respiratory Rate 18 12/25/2013 6:19 AM CDT Oxygen Saturation 97% 12/25/2013 6:19 AM CDT Inhaled Oxygen Concentration - - Weight 68 kg (150 lb) 12/25/2013 6:19 AM CDT Height 162.6 cm (5' 4 ) 12/19/2013 10:46 AM CDT Body Mass Index 25.75 12/19/2013 10:46 AM CDT documented in this encounter Discharge Instructions * Discharge Instructions* Aurea Gallardo PA - 12/25/2013 10:26 AM CDT Thank you for choosing [facility] for your care! The following is a [...] 1-2 days to make your appointment at [phone]. Feel free to call for any further [...] out. Medications will NOT be refilled by ???content checker?? providers after hours! > Many pain medications [...] Gallardo PA - 12/25/2013 10:14 AM CDT [place], [place] [address] Neurosurgery Brief Operative Note Aracelis Gao 1955 [id number] Today's Date: 12/25/2013 Pre-op Dx: lumbar radiculopathy Post op Dx: Same Surgery Performed: MIS right L4/L5 hemilaminectom and decompressiony and far lateral microdisectomy Specimen: None EBL: 25cc Anesthesia: General Complications: None Surgeon: Dr. Hieu M.D. Assist: Aurea Gallardo PA-C * Haley Hagen MD - 12/25/2013 10:14 AM CDT Dictation: #[id number] documented in this encounter H&P Notes * [...] Gallardo PA - 12/25/2013 7:08 AM CDT [place], [place] [address] HISTORY AND PHYSICAL PATIENT NAME: Aracelis Gao CSN: [id number] ADMITTING PHYSICIAN: Haley Hagen MD PRIMARY CARE [...] denies any anemia, bleeding or easy bruisability TRACTOR MECHANIC HELPER: Positive for pain, negative for paresthesia and [...] Hagen MD - 12/25/2013 7:55 PM CDT [place], [place] [address] Operative Report CSN: [id number] DATE OF SERVICE: 12/25/2013 SURGEON Haley Hagen MD PREOPERATIVE DIAGNOSIS Lumbar disk herniation. POSTOPERATIVE DIAGNOSIS Lumbar disk herniation. OPERATION NAME 1. Far lateral approach to lumbar disk herniation. 2. Hemilaminectomy and microdiskectomy. AERIAL LINEMAN Aurea Gallardo PA-C, who participated in both [...] down through the fascia, then using the KiteBit system, I used a series of dilators [...] was inferiorly. At that time, using a Philip 4, I was able to identify the [...] and needle counts were correct. TQ:MEDQ DID: [id number] Dictated by: Haley Hagen MD * Khushi-OP [...] pain/comfort utilizing verbal/nonverbal pain scales; assess culturalor sabianist indicators attached to pain; administer pain medications [...] pain/comfort utilizing verbal/nonverbal pain scales; assess culturalor sabianist indicators attached to pain; administer pain medications [...] time: 14 seconds. Dictated from Location 1: [facility] Procedure Note Jarad Troncoso MD - 12/25/2013 FLUOROSCOPY LESS THAN ONE HOUR, 12/25/2013 HISTORY: Lumbar disc herniation. FINDINGS: Intraoperative fluoroscopic guidance was provided for Dr. Hagen during lumbar surgery. A series of crosstable lateral intraoperative fluoroscopic spot films shows placement of the tube/scope and instrumentation at the L4-L5 disc space level posteriorly. Fluoroscopy time: 14 seconds. Dictated from Location 1: [facility] Haley Hagen MD DIAGNOSTIC IMAGING O ANDRA documented in this encounter Visit Diagnoses Not on filedocumented in this encounter Administered Medications Inactive Administered Medications - up to 3 most recent administrations Medication Order MAR Action Action Date Dose Rate Site bacitracin (BACI-IM) 50,000 Units in sodium chloride 0.9 % irrigation 500 mL IRRIGATION INTRA-PROCEDURE PRN, Starting on Freya 12/25/13 at 0820, Until Freya 12/25/13 at 1010, Routine, Intra-op Given 12/25/2013 8:20 AM CDT Operative Site bupivacaine-EPINEPHrine (SENSORCAINE-EPINEPHRINE) 0.5 %-1:200,000 injection INTRA-PROCEDURE PRN, Starting on Freya 12/25/13 at 0822, Until Freya 12/25/13 at 1010, Routine, Intra-op Given 12/25/2013 8:22 AM CDT 10 mL Operative Site fentaNYL PF (SUBLIMAZE) 50 mcg/mL injection [...] Starting on Freya 12/25/13 at 1017, Until Ferya 12/25/13 at 2120, Pain, Moderate, Routine Given [...] Given 12/25/2013 6:34 AM CDT 0.3 mL Hand, Right methylPREDNISolone Acetate (DEPO-MEDROL) injection INTRA-PROCEDURE PRN, Starting on Freya 12/25/13 at 0914, Until Freya 12/25/13 at 1010, Routine, Intra-op Given 12/25/2013 9:14 AM CDT 80 mg Operative Site vancomycin (VANCOCIN) IVPB 1,000 mg 1,000 mg (15 mg/kg ? 67.1 kg), IV, PRE-PROCEDURE ONCE, 1 dose, Starting on Freya 12/25/13 at 0602, Until Freya 12/25/13 at 0748, Routine, Pre-op, Antibiotic Indication: Surgical prophylaxis New Bag 12/25/2013 6:48 AM CDT 1,000 mg water sterile irrigation irrigation INTRA-PROCEDURE PRN, Starting on Freya 12/25/13 at 0823, Until Freya 12/25/13 at 1010, Routine, Intra-op Given 12/25/2013 8:23 AM CDT 1,000 mL Other (Comment) documented in this encounter Active and Recently [...] Kristan Anderson RN) Continuous Medication Order 12/23/2013 12/24/2013 12/25/2013 lactated ringers solution (CANCELED) IV, at 150 [...] PACU 1042 (Given - Provid er: Isis Pearl RN)1050 (Given - Provider: Isis Pearl RN) HYDROcodone-acetaminophen [...] pt) documented in this encounter Care Teams Director Mba Relationship Specialty Start Date End Date Kristopher Brown MD [address] [place] [address] PCP - General Family Practice 12/19/13 documented as of this encounter
== END 2024-04-21 09:02 | disposition home or self-care (01) ==
PROVIDERS: PCP Family Medicine; Visit Provider Family Medicine
DX: Z12.31 Encounter for screening mammogram for malignant neoplasm of breast (principal)
CPT/HCPCS: 77063; 77067

== ENCOUNTER 2024-06-06 14:17 | Outpatient (CLI) | payer MEDICARE, SELFPAY ==
--- NOTE | ~2024-06-06 | DEXA_ITS ---
Bone Density Report Name: GUNNER CESAR Age: 69 Sex: Female Ethnicity: White Date of : 1955 Indication: osteopenia; monitoring treatment; height loss; prior fracture; hysterectomy; Referring Provider: RICHAR ALVARADO Study: Bone densitometry was performed. Exam Date: June 06, 2024 Accession number: [id number] Bone Density: Region BMD T-score Z-score Classification AP Spine(L1-L4) 1.015 -0.3 1.6 Normal Femoral Neck (Left) 0.636 -1.9 -0.3 Osteopenia Total Hip (Left) 0.839 -0.8 0.5 Normal Femoral Neck (Right) 0.636 -1.9 -0.3 Osteopenia Total Hip (Right) 0.814 -1.1 0.3 Osteopenia Total Hip Mean 0.826 -1.0 0.4 Normal World Health Organization criteria for BMD impression classify patients as: Normal (T-score at or above -1.0), Osteopenia (T-score between -1.0 and -2.5), or Osteoporosis (T-score at or below -2.5). 10-year Fracture Risk: FRAX not reported because: Treated for osteoporosis Previous Exams: Region Exam Age BMD T-score BMD Change BMD Change Date g/cm2 vs Baseline vs Previous Total Hip(Left) 06/06/2024 69 0.839 -0.8 -0.004 (-0.5%) -0.030 (-3.4%) 03/16/2022 67 0.869 -0.6 0.026 (3.0%)# 0.014 (1.7%) 02/11/2020 64 0.854 -0.7 0.011 (1.3%)# -0.019 (-2.2%) 01/11/2018 62 0.873 -0.6 0.030 (3.6%)# 0.030 (3.6%)# 11/11/2015 60 0.843 -0.8 Total Hip(Right) 06/06/2024 69 0.814 -1.1 0.060 (7.9%)# 0.033 (4.2%)* 03/16/2022 67 0.781 -1.3 0.027 (3.5%)# 0.044 (5.9%)* 02/11/2020 64 0.737 -1.7 -0.017 (-2.3%) -0.061 (-7.6%) 01/11/2018 62 0.798 -1.2 0.044 (5.8%)# 0.044 (5.8%)# 11/11/2015 60 0.754 -1.5 *Denotes significance at 95% confidence level, LSC for Total Hip = 0.027 g/cm2 # Denotes dissimilar scan types or analysis methods Clinical Information Provided by Patient: Has had a low trauma fracture Is being treated for osteoporosis Has used the following medications: Fosamax (i.e. alendronate), Vitamin D, Calcium Has the following medical conditions: Hysterectomy Patient maximum height was 64.5 Menopause Age: 47 Drinks caffeinated beverages Onset of menses at age 15 Number of children 3 Impression: The patient has low bone mass, based on the Left Femoral Neck T-score. The patient has risk factors, including: previous fracture. The BMD for the Total Hip(Left) decreased, changing by -3.4% since the last DXA exam. Discussion: SIGNIFICANT BONE LOSS OBSERVED. Adherence to therapy (including calcium and vitamin D intake) should be assessed. If compliance is not a factor, review management and exclusion of secondary causes of bone loss. It is important to ask patients whether they are taking their medications and to encourage continued and appropriate compliance with their osteoporosis therapies to reduce fracture risk. It is also important to review their risk factors and encourage appropriate calcium and vitamin D intakes, exercise, fall prevention and other lifestyle measures. Follow-Up: Consider a repeat BMD and Vertebral Fracture Assessment (VFA) exam in 2 years or sooner if medically necessary, to reassess this patient's status. Reported by: ILIA on 06/06/2024 2:57:00 PM. Reviewed, dictated and finalized at location AGarland SANDHU
--- OUTSIDE RECORDS SUMMARY | 2024-06-06 14:30 | XMS_ITS | Clinical Summary ---
Author Organization [facility] Address [address] [place] [address] Phone Care Team Providers Care Outpatient Clerk Name Role Phone Kristopher Brown MD Primary Care Provider [phone] Allergies Active Allergy Reactions Criticality Noted Date Comments Codeine Nausea and Vomiting Low 12/19/2013 Penicillins Other (See Comments) 12/19/2013 Unknown-child Medications multivitamin (DAILY-SIERRA) tablet Take 1 Tab by mouth daily. Active CALCIUM CARBONATE (CALCIUM 500 ORAL) Take by mouth. Active 0mega-3 fatty acids-vitamin E (FISH OIL) 1,000 mg Capsule Take 1,000 mg by mouth. Active ibuprofen (MOTRIN) 200 mg tablet Take 200 mg by mouth every 6 hours as needed for Pain, Mild. Active HYDROcodone-acet aminophen (NORCO) 5-325 mg tablet Take 1 Tab by mouth every 4 hours as needed for Pain, Moderate. 90 Tab 0 12/25/2013 Active Active Problems No known active problems Social History Tobacco Use Types Packs/Day Years Used Date Smoking Tobacco: Never Alcohol Use Standard Drinks/Week Comments Yes 3.3 (1 standard drink = 0.6 oz p ure alcohol) Comments Unknown Sex and Gender Information Value Date Recorded Sex Assigned at Not on file Legal Sex Female 2:33 PM CDT Gender Identity Not on file Sexual Orientation Not on file Occupation Industry Job Start Date Job End Date Not on file Not on file Not on file Not on file Last Filed Vital Signs Vital Sign Reading Time Taken Comments Blood Pressure 106/52 12/25/2013 6:35 PM CDT Pulse 78 12/25/2013 6:35 PM CDT Temperature 36.6 C (97.8 F) 12/25/2013 6:35 PM CDT Respiratory Rate 16 12/25/2013 6:35 PM CDT [...] Flex Sig/CT Colonography Q 5 years 2002 PNEUMOCOCCAL VACCINE 65+ YEARS (1 of 1 - PCV) 03/11/20 07 ZOSTER VACCINE (1 of 2) 2007 OSTEOPOROSIS SCREENING 2022 INFLUENZA VACCINE (#1) 2023 RSV VACCINE (60+ or ) (1 - 1-dose 75+ series) 2032 Medical Devices Implanted Type Area Cell Plasterer Device Identifier Shelf Expiration Date Model / Serial / Lot Sealant Floseal W/ Adptr 10ml [id number] - [id number] Implanted:Qty : 1 on 12/25/2013 by Haley Hagen MD at [facility] Sealant Right: Spine Lumbar WHITE- BIOSCIENCE 02/26/2015 [id number] / / [id number] Insurance [facility] OPTIONS PPO [id number] BLUE ACCESS/TRUE BLUE PPO Advance Directives For more information, please contact: [phone] * Full Code (Latest Code Status on File) Date Activated Date Inactivated Comments 12/25/2013 6:02 AM 12/25/2013 9:20 PM Care Teams Outpatient Clerk Relationship Specialty Start Date End Date Kristopher Brown MD [address] [place] [address] PCP - General Family Practice 12/19/13
== END 2024-06-06 14:18 | disposition home or self-care (01) ==
LOC: ANHIMG 14:26
PROVIDERS: PCP Family Medicine; Visit Provider Student in an Organized Health Care Education/Training Program
DX: Z78.0 Asymptomatic menopausal state (principal); M85.852 Other specified disorders of bone density and structure, left thigh; M85.851 Other specified disorders of bone density and structure, right thigh
CPT/HCPCS: 77080

== ENCOUNTER 2024-06-07 09:25 | Outpatient (CLI) | payer MEDICARE, SELFPAY ==
--- OUTSIDE RECORDS SUMMARY | 2024-06-07 09:28 | XMS_ITS | Clinical Summary ---
Author Organization [facility] Address [address] [place] [phone] Phone Care Team Providers Care [employer] Team Member Name Role Phone Kristopher Brown MD Primary Care Provider +1 [phone] Allergies Active Allergy Reactions Criticality Noted Date [...] series) 2032 Medical Devices Implanted Type Area Dry Drug Worker Device Identifier Shelf Expiration Date Model / Serial / Lot Sealant Floseal W/ Adptr 10ml [id number] - [id number] Implanted:Qty : 1 on 12/25/2013 by Haley Hagen MD at [facility] Sealant Right: Spine Lumbar WHITE- BIOSCIENCE 02/26/2015 [id number] / / [id number] Insurance [facility] OPTIONS PPO [id number] BLUE ACCESS/TRUE BLUE PPO Advance Directives For more information, please contact: [phone] * Full Code (Latest Code Status on File) Date Activated Date Inactivated Comments 12/25/2013 6:02 AM 12/25/2013 9:20 PM Care Teams [employer] Team Member Relationship Specialty Start Date End Date Kristopher Brown MD [address] [place] [address] PCP - General Family Practice 12/19/13
[2024-06-07 10:41] LABS: Alanine Aminotransferase 19 U/L (6-35); Albumin Level 3.7 g/dL (3.5-5.1); Alkaline Phosphatase 61 U/L (38-126); Anion Gap 5 mmol/L (4-12); Aspartate Amino Transferase 15 U/L (14-36); Bilirubin,Total 0.7 mg/dL (0.2-1.3); Blood Urea Nitrogen 16 mg/dL (7-17); Calcium 8.6 mg/dL (8.4-10.2); Carbon Dioxide 31 mmol/L (22-30); Chloride 104 mmol/L (98-107); Cholesterol 204 mg/dL (0-200); Estimated Glomerular Filt Rate > 60; Glucose 95 mg/dL (65-110); HDL Direct 70 mg/dL; Potassium 4.1 mmol/L (3.4-5.0); Sodium 140 mmol/L (137-145); Triglycerides 61 mg/dL (<150)
[2024-06-07 10:51] LABS: LDL Cholesterol Direct 99 mg/dL
== END 2024-06-07 09:26 | disposition home or self-care (01) ==
PROVIDERS: PCP Family Medicine; Visit Provider Student in an Organized Health Care Education/Training Program
DX: M81.0 Age-related osteoporosis without current pathological fracture (principal); E78.5 Hyperlipidemia, unspecified
CPT/HCPCS: 36415; 80053; 80061

== ENCOUNTER 2025-04-21 11:13 | Outpatient (CLI) | payer MEDICARE, SELFPAY ==
--- NOTE | ~2025-04-21 | MM_ITS ---
EXAMINATION: MM screening minh BI w madan HISTORY: Screening. TECHNIQUE: Craniocaudal and mediolateral oblique 3-D tomosynthesis images were obtained and synthetic 2-D images were generated. CAD analysis was submitted and interpreted. COMPARISON: 2023, 2022,and 2021 BREAST PARENCHYMAL COMPOSITION: Dense: The breasts are heterogeneously dense, which may obscure small masses. FINDINGS: No suspicious masses are seen. There are no suspicious calcifications. No unexplained architectural distortion is seen. There are no skin or nipple abnormalities identified. There is no adenopathy seen on the images submitted. IMPRESSION: No mammographic evidence to suggest malignancy is seen. The patient may return to screening mammography as per ACR guidelines. BI-RADS 1 - Negative. Reviewed, dictated and finalized at location C. RAL AGENT
--- OUTSIDE RECORDS SUMMARY | 2025-04-21 11:42 | XMS_ITS | Clinical Summary ---
Author Organization [facility] Address [address] [place] [address] Care Team Providers Care Class B Driver Name Role Phone Unavailable Primary Care Provider Unavailabl e Source Comments [facility],non-owned Affiliates and Associated Physician Practices is amultiple site organization consisting of ambulatory clinics and hospital sitesin [place], [place], [place] and [place]. This disclosure is being madepursuant to the Care Everywhere program and may not contain all information available regarding this patient. Last updated 18.[facility] Encounters Date Type Department Care Team Description 04/08/2025 Lab Requisition [facility] - DermPath Lab [address] [facility] [place] [phone] Kezia Rubalcava MD Neoplasm of uncertain behavior of skin from Last 3 Months Social History Tobacco Use Types Packs/Day Years Used Date Smoking Tobacco: Never Assessed Comments Unknown Sex and Gender Information Value Date Recorded Sex Assigned at Not on file Legal Sex Female 1:24 PM PEST CONTROLLER ASSISTANT Gender Identity Not on file Sexual Orientation Not on file Plan of Treatment Health Maintenance Due Date Last Done Comments BONE DENSITY TESTING 1955 COLOGUARD (AGES 45-75) - COL ON CA SCREENING 1955 COLON MONITORING 1955 COLONOSCOPY - COLON CA SCREENING 1955 CT COLONOGRAPHY - COLON CA SCREENING 1955 Colorectal Cancer Screening 1955 FIT - COLON CA SCREENING 1955 FLEX SIG - COLON CA SCREENING 1955 LIPID TESTING 1955 MAMMOGRAM 1955 HEPATITIS C SCREENING 03/07/1975 DTAP/TDAP/TD VACCINES (1 - Tdap) 1976 PNEUMOCOCCAL VACCINE 50+ (1 of 1 - PCV) 2007 ZOSTER VACCINE (1 of 2) 2007 DEPRESSION SCREENING 04/30/2024 MEDICARE AWV CALENDAR YEAR 2024 COVID-19 VACCINE (1 - 2024-2 6 season) 2024 INFLUENZA VACCINE (#1) 2024 Respiratory Syncytial Virus (RSV) Vaccine Pt: or over 60 yrs (1 - 1-dose 75+ series) 2032 HEPATITIS B VACCINE Aged Out No longe r eligible based on patient's age to complete this topic HIB VACCINE Aged Out No longer eligi ble based on patient's age to complete this topic HPV VACCINE Aged Out No longer eligi ble based on patient's age to complete this topic MENINGOCOCCAL (Group B) VACC INE SHARED DECISION-MAKING Aged Out No longer eligibl e based on patient's age to complete this topic MENINGOCOCCAL GROUPS A/C/Y/W VACCINE Aged Out No longer eligible b ased on patient's age to complete this topic Procedures Procedure Name Priority Date/Time Associated Diagnosis Comments DERMATOPATHOLOGY Routine 04/08/2025 12:4 5 PM PEST CONTROLLER ASSISTANT Neoplasm of uncertain behavior of skin from Last 3 Months Results * DERMATOPATHOLOGY (04/08/2025 12:45 PM PEST CONTROLLER ASSISTANT) Case Report Dermatopathology Report Case: [id number] Authorizing Provider: Kezia Rubalcava MD Collected: 04/08/2025 12:45 PM Ordering Location: [facility] - Received: 04/09/2025 01:28 PM DermPath Lab Pathologist: Abbey Sams MD Specimen: Skin, nose 4:15 PM PEST CONTROLLER ASSISTANT DERMATOPATHOLOGY LABORATORY Final Diagnosis Specimen A. SKIN, nose: ACTINIC KERATOSIS (L57.0) (see microscopic description) 4:15 PM PEST CONTROLLER ASSISTANT DERMATOPATHOLOGY LABORATORY at 1615 PEST CONTROLLER ASSISTANT Clinical History R/O BCC 4:15 PM PEST CONTROLLER ASSISTANT DERMATOPATHOLOGY LABORATORY Gross Description Specimen A: Received is one formalin filled container labeled with the patient's name and designated nose. The specimen consists of a shave biopsy measuring 2x1x1 mm. Jar 0. 5 4:15 PM [facility] DERMATOPATHOLOGY LABORATORY Microscopic Description Specimen A. SKIN, nose: There is focal parakeratosis. The lower half of the epidermis shows disorderly maturation of keratinocytes with nuclear pleomorphism. Additional deeper sections were obtained and reviewed. 4:15 PM [facility] DERMATOPATHOLOGY LABORATORY Disclaimer An external and internal positive and negative controls are appropriate for the histochemical, immunohistochemical and immunofluorescence stain(s) in this case (if any), except where stated explicitly. The performance characteristics of the stain(s) cited in this report were developed and its performance characteristic determined by the Dermatopathology Laboratory at [facility], directed by Dr. Jared Sams. These tests need not be, and therefore are not, approved by the [place] Food and Drug Administration. The tests are used for clinical purposes. Billing Codes Specimen Charges Stain Charges 01374 1 4:15 PM [facility] DERMATOPATHOLOGY LABORATORY Embedded Images 5 4:15 PM [facility] DERMATOPATHOLOGY LABORATORY Pathology/Cytolo gy TISSUE SPECIMEN FROM SKIN / Unknown 04/08/2025 12:45 PM PEST CONTROLLER ASSISTANT 04/09/2025 1:28 PM PEST CONTROLLER ASSISTANT Kezia Rubalcava MD LAB - PATHOLOGY/CYTOLOGY ORD ERABLES Final Result DERMATOPATHOLOGY LABORATORY [facility] - Department of Dermatology [facility] Medicine [address] [place] [address], [address] [phone] from Last 3 Months Insurance [facility] MANAGED MEDICARE ADV
--- OUTSIDE RECORDS SUMMARY | 2025-04-21 11:42 | XMS_ITS | Clinical Summary ---
Author Organization [facility] Address [address] [place] [address] Phone Care Team Providers Care Plaster Form Maker Name Role Phone Kristopher Brown MD Primary Care Provider [phone]- [phone] Allergies Active Allergy Reactions Criticality Noted Date [...] 6:19 AM CDT Height 162.6 cm (5' 4) 12/19/2013 10:46 AM CDT Body Mass Index 25.75 12/19/2013 10:46 AM CDT Plan of Treatment Health Maintenance Due Date Last Done Comments DTAP/TDAP/TD VACCINES (1 - Tdap) 1976 BREAST CANCER SCREENING 1997 COLORECTAL SCREENING 2002 Colorectal Cancer Screening 2002 FIT-DNA Q 3 years 2002 FIT/FOBT Q 1 year 2002 Flex Sig/CT Colonography Q 5 years 2002 PNEUMOCOCCAL VACCINE 50+ YEARS (1 of 1 - PCV) 03/11/20 07 ZOSTER VACCINE (1 of 2) 2007 OSTEOPOROSIS SCREENING 2022 INFLUENZA VACCINE (#1) 2024 RSV VACCINE (60+ or ) (1 - 1-dose 75+ series) 2032 Medical Devices Implanted Type Area Stretching Machine Operator Device Identifier Shelf Expiration Date Model / Serial / Lot Sealant Floseal W/ Adptr 10ml [id number] - [id number] Implanted:Qty : 1 on 12/25/2013 by Haley Hagen MD at [facility] Sealant Right: Spine Lumbar WHITE- BIOSCIENCE 02/26/2015 [id number] / / [id number] Insurance [facility] OPTIONS PPO [id number] Member Subscriber Plan / Payer (Ef fective 2020-Present) Name:Aracelis Gao Relation to Subscriber:Self Name:Aracelis Gao Payer ID:[id number] (NAIC) Type:PPO Address: [address] BLUE ACCESS/TRUE BLUE PPO Advance Directives For more information, please contact: [phone] * Full Code (Latest Code Status on File) Date Activated Date Inactivated Comments 12/25/2013 6:02 AM 12/25/2013 9:20 PM Care Teams Plaster Form Maker Relationship Specialty Start Date End Date Kristopher Brown MD [address] [place] [phone] PCP - General Family Practice 12/19/13
--- OUTSIDE RECORDS SUMMARY | 2025-04-21 11:42 | XMS_ITS | Encounter Summary ---
Author Organization [facility] Address [address] [facility] [place] [address] Care Team Providers Care Multiple Needle Stitcher Name Role Phone Unavailable Primary Care Provider Unavailabl e Encounter Details Date Type Department Care Team (Late st Contact Info) Description 04/08/2025 Lab Requisition [facility] - DermPath Lab [address] [facility], [place] [phone] Kezia Rubalcava MD [address] [facility] [address] [place] [address] Neoplasm of uncertain behavior of skin Social History Tobacco Use Types Packs/Day Years Used Date Smoking Tobacco: Never Assessed Comments Unknown Sex and Gender Information Value Date Recorded Sex Assigned at Not on file Legal Sex Female 1:24 PM PERFECT BINDER FEEDER OFFBEARER Gender Identity Not on file Sexual Orientation Not on file documented as of this encounter Plan of Treatment Not on file documented as of this encounter Procedures Procedure Name Priority Date/Time Associated Diagnosis Comments DERMATOPATHOLOGY Routine 04/08/2025 12:4 5 PM PERFECT BINDER FEEDER OFFBEARER Neoplasm of uncertain behavior of skin documented in this encounter Results * DERMATOPATHOLOGY (04/08/2025 12:45 PM PERFECT BINDER FEEDER OFFBEARER) Case Report Dermatopathology Report Case: [id number] Authorizing Provider: Kezia Rubalcava MD Collected: 04/08/2025 12:45 PM Ordering Location: [facility] Physician [facility] - Received: 04/09/2025 01:28 PM DermPath Lab Pathologist: Abbey Sams MD Specimen: Skin, nose 4:15 PM PERFECT BINDER FEEDER OFFBEARER DERMATOPATHOLOGY LABORATORY Final Diagnosis Specimen A. SKIN, nose: ACTINIC KERATOSIS (L57.0) (see microscopic description) 4:15 PM [facility] DERMATOPATHOLOGY LABORATORY at 1615 PERFECT BINDER FEEDER OFFBEARER Clinical History R/O BCC 4:15 PM [facility] DERMATOPATHOLOGY LABORATORY Gross Description Specimen A: Received is one formalin filled container labeled with the patient's name and designated nose. The specimen consists of a shave biopsy measuring 2x1x1 mm. Jar 0. 4:15 PM [facility] DERMATOPATHOLOGY LABORATORY Microscopic Description Specimen A. SKIN, nose: There is focal parakeratosis. The lower half of the epidermis shows disorderly maturation of keratinocytes with nuclear pleomorphism. Additional deeper sections were obtained and reviewed. 4:15 PM [facility] DERMATOPATHOLOGY LABORATORY Disclaimer An external and internal positive and negative controls are appropriate for the histochemical, immunohistochemical and immunofluorescence stain(s) in this case (if any), except where stated explicitly. The performance characteristics of the stain(s) cited in this report were developed and its performance characteristic determined by the Dermatopathology Laboratory at [facility], directed by Dr. Jared Sams. These tests need not be, and therefore are not, approved by the [place] Food and Drug Administration. The tests are used for clinical purposes. Billing Codes Specimen Charges Stain Charges 93263 1 4:15 PM [facility] DERMATOPATHOLOGY LABORATORY Embedded Images 4:15 PM [facility] DERMATOPATHOLOGY LABORATORY Pathology/Cytolo gy TISSUE SPECIMEN FROM SKIN / Unknown 04/08/2025 12:45 PM PERFECT BINDER FEEDER OFFBEARER 04/09/2025 1:28 PM [facility] us Kezia Rubalcava MD LAB - PATHOLOGY/CYTOLOGY ORD ERABLES Final Result DERMATOPATHOLOGY LABORATORY [facility] - Department of Dermatology [address] [place] [address], [facility] [phone] documented in this encounter Visit Diagnoses Diagnosis Neoplasm of uncertain behavior of skin documented in this encounter
--- OUTSIDE RECORDS SUMMARY | 2025-04-21 11:42 | XMS_ITS | Encounter Summary ---
Author Organization [facility] Address [address] [facility] [place] [address] Care Team Providers Care Publication Manager Name Role Phone Unavailable Primary Care Provider Unavailabl e Encounter Details Date Type Department Care Team (Late st Contact Info) Description 07/14/2024 Lab Requisition [facility] - DermPath Lab [address] [facility] [place] [phone] Keiza Rubalcava MD [address] [facility] [address] [place] [address] Social History Tobacco Use Types Packs/Day Years Used Date Smoking Tobacco: Never Assessed Comments Unknown Sex and Gender Information Value Date Recorded Sex Assigned at Not on file Legal Sex Female 1:24 PM WEAVER HAND Gender Identity Not on file Sexual Orientation Not on file documented as of this encounter Plan of Treatment Not on file documented as of this encounter Procedures Procedure Name Priority Date/Time Associated Diagnosis Comments DERMATOPATHOLOGY Routine 07/14/2024 9:40 AM CDT documented in this encounter Results * DERMATOPATHOLOGY (07/14/2024 9:40 AM CDT) Case Report Dermatopathology Report Case: [id number] Authorizing Provider: Kezia Rubalcava MD Collected: 07/14/2024 09:40 AM Ordering Location: [facility] Physician [facility] - Received: 07/15/2024 06:41 AM DermPath Lab Pathologist: Priya Montes De Oca MD Specimen: Skin, right forearm 12:52 PM CDT DERMATOPATHOLOGY LABORATORY Final Diagnosis Specimen A. SKIN, right forearm: BENIGN VERRUCOUS KERATOSIS, INFLAMED (L82.1) 12:52 PM CDT DERMATOPATHOLOGY LABORATORY at 1252 CDT Clinical History ISK vs VV vs SCC 12:52 PM CDT DERMATOPATHOLOGY LABORATORY Gross Description Specimen A: Received is one formalin filled container labeled with the patient's name and designated right forearm. The specimen consists of a shave biopsy measuring 7x7x3 mm. Jar 0. 12:52 PM CDT DERMATOPATHOLOGY LABORATORY Microscopic Description Specimen A. SKIN, right forearm: Sections show hyperkeratosis, papillomatosis, hypergranulosis, and acanthosis. Inflammatory cells are present within the dermis. These histological findings can be seen in a verruca vulgaris or a seborrheic keratosis. 12:52 PM CDT DERMATOPATHOLOGY LABORATORY Disclaimer An external and internal positive and negative controls are appropriate for the histochemical, immunohistochemical and immunofluorescence stain(s) in this case (if any), except where stated explicitly. The performance characteristics of the stain(s) cited in this report were developed and its performance characteristic determined by the Dermatopathology Laboratory at [facility], directed by Dr. Jared Sams. These tests need not be, and therefore are not, approved by the [place] Food and Drug Administration. The tests are used for clinical purposes. Billing Codes Specimen Charges Stain Charges 32507 1 12:52 PM CDT DERMATOPATHOLOGY LABORATORY Embedded Images 12:52 PM CDT DERMATOPATHOLOGY LABORATORY Pathology/Cytolo gy TISSUE SPECIMEN FROM SKIN / Unknown 07/14/2024 9:40 AM CDT 07/15/2024 6:41 AM CDT us Kezia Rubalcava MD LAB - PATHOLOGY/CYTOLOGY ORD ERABLES Final Result DERMATOPATHOLOGY LABORATORY [facility] - Department of Dermatology [address] [place] [address], [facility] [phone] documented in this encounter Visit Diagnoses Not on filedocumented in this encounter
== END 2025-04-21 11:14 | disposition home or self-care (01) ==
PROVIDERS: PCP Family Medicine; Visit Provider Obstetrics & Gynecology
DX: Z12.31 Encounter for screening mammogram for malignant neoplasm of breast (principal)
CPT/HCPCS: 77063; 77067